=== PATIENT | male | born 1935 | race Caucasian/White ===

== ENCOUNTER 2019-02-01 11:43 | Inpatient (IN) | payer MEDICARE, OTHER, SELFPAY ==
[2019-02-01] VITALS (29 sets, daily range): BP systolic 71–144; BP diastolic 49–91; PULSE 65–107; RESP 10–28; TEMP 30.6–36.9; O2SAT 64–98; BMI 47.2
--- NOTE | 2019-02-01 | DI.ECHO.S_ITS ---
[facility] +---------+ : : [address] : [address] [address] : : : : [id number] : : : : Phone: [phone] Echocardiogram Report + + :Name: HA BARRETO Study Date: 02/02/2019 Height: 70 in : :[facility] Weight: 328 lb : : Gender: Male BSA: 2.6 m2 : :: 1935 Age: 83 yrs BP: 124/64 mmHg: :Reason For Study: CHF : : Performed By: [facility] Staff : :Referring: ELIZABETH NEWELL : + + Interpretation Summary The patient was in atrial fibrillation with controlled ventricular rate during the exam. The left ventricle is grossly normal size. Left ventricular ejection fraction is estimated to be 35 +/- 5%. There is moderate to severe global hypokinesis of the left ventricle. The right ventricle is moderate to severely dilated. Right ventricular systolic function is moderately reduced. The aortic valve is mildly calcified. There is mildly reduced leaflet mobility. The peak aortic velocity is 2.3 m/sec. The aortic valve mean gradient is 13 mmHg. There is mild aortic stenosis. There is moderate tricuspid regurgitation. The right ventricular systolic pressure is estimated to be at least 53 mmHg based on an estimated right atrial pressure of 15 mm Hg. There appears to be moderate to large pericardial effusion posterior to the left ventricle, right atrium and near the base of right ventricle. Near the apex and distal third of free RV wall, pericardial effusion is small. No obvious diastolic RV or right atrial collapse. No obvious jorge luis tamponade features. Procedure: A two-dimensional transthoracic echocardiogram with color flow and Doppler was performed. The study quality was technically difficult. A contrast injection of Definity was performed to improve assessment of LV function. There is no prior echocardiogram noted for this patient. The patient was in atrial fibrillation with controlled ventricular rate during the exam. Left Ventricle: There is mild concentric left ventricular hypertrophy. The left ventricle is grossly normal size. The left ventricular apex is not well visualized. Left ventricular ejection fraction is estimated to be 35 +/- 5%. There is moderate to severe global hypokinesis of the left ventricle. Diastolic function could not be accurately assessed due to atrial fibrillation. Right Ventricle: The right ventricle is moderate to severely dilated. Right ventricular systolic function is moderately reduced. Atria: The left atrium is severely dilated. The right atrium is severely dilated. The interatrial septum is intact with no evidence for an atrial septal defect. Mitral Valve: The mitral valve leaflets are mildly calcified. The mitral valve leaflets appear mildly thickened, but open well. There is mild mitral annular calcification. There is mild mitral regurgitation. Aortic Valve: The aortic valve is mildly calcified. There is mildly reduced leaflet mobility. There is mild aortic stenosis. The calculated aortic valve area is 1.5 cm2. The peak aortic velocity is 2.3 m/sec. The aortic valve mean gradient is 13 mmHg. No aortic regurgitation is present. Tricuspid Valve: The tricuspid valve is not well visualized, but is grossly normal. There is moderate tricuspid regurgitation. The right ventricular systolic pressure is estimated to be at least 53 mmHg based on an estimated right atrial pressure of 15 mm Hg. Pulmonic Valve: The pulmonic valve is not well visualized. There is trace pulmonic regurgitation. Great Vessels: The aortic root is normal size. The ascending aorta is at the upper limits of normal in size. The pulmonary artery is normal size. The IVC is dilated (diameter is greater than 2.1 cm) and it collapses less than 50% with a sniff. This suggests a high right atrial pressure of 15 mm Hg. Pericardium/ Pleura There appears to be moderate to large pericardial effusion posterior to the left ventricle and right atrium. Near the apex and distal third of free RV wall, pericardial effusion is small. No obvious diastolic RV or right atrial collapse. No obvious jorge luis tamponade features. There is no pleural effusion. MMode/2D Measurements & Calculations LVIDd: 5.5 cm LVOT diam: 2.1 cm LVIDs: 4.2 cm Ao root diam: 3.9 cm FS: 22.6 % Aortic Jxn: 2.8 cm EPSS: 1.0 cm asc Aorta Diam: 3.9 cm IVSd: 1.3 cm LVPWd: 1.4 cm LV fenton. diameter/BSA (cm/m^2): 2.1 LV sys. diameter/BSA (cm/m^2): 1.6 LA A2 area: 42.2 cm2 RA long axis: 7.4 cm LA A4 area: 49.2 cm2 RA area: 36.6 cm2 LA length (vol): 8.4 cm RA vol: 154.0 ml LA vol: 209.7 ml RA : 59.8 ml/m2 LA vol index: 81.4 ml/m2 IVC diam: 3.4 cm TAPSE: 1.4 cm Doppler Measurements & Calculations Ao V2 max: 231.0 cm/sec LVOT Max [place]: 89.0 cm/sec Ao V2 mean: 163.4 cm/sec LV V1 max P.2 mmHg Ao max P.0 mmHg LV V1 VTI: 18.3 cm Ao mean P.9 mmHg LYLE(I,D): 1.5 cm2 Ao V2 VTI: 45.5 cm LYLE(V,D): 1.4 cm2 sev ratio: 0.40 LYLE indexed to BSA (cm^2/m^2): 0.56 TR max [place]: 253.6 cm/sec SV(LVOT): 66.1 ml TR max P.9 mmHg Reading Physician:04:02 PM
--- NOTE | 2019-02-01 11:55 | ED_ITS ---
HPI - SOB/Dyspnea General Chief Complaint: Shortness of Breath/Dyspnea Stated Complaint: hx of a-fib/CHF/sob x 11days Time Seen by Provider: 02/01/19 11:50 Source: patient and old records reviewed Mode of arrival: Wheelchair Limitations: no limitations History of Present Illness HPI Narrative: Patient is an 83-year-old male with history of atrial fibrillation, CHF diabetes chronic kidney disease presenting with increasing shortness of breath sent over from a PCP. According to the they were seen at the PCP today because she has been having trouble keeping him awake. She says that while he is eating he stays awake but otherwise he was difficult to arouse and has been so over the last few days. The provider called me stating that he was satting 79% on room air in refused to come by ambulance he is not typically on oxygen he has had a cough but not productive no fevers he denies any chest pain currently as an O2 of 64% speaking in relatively full sentences. MD Complaint: shortness of breath Known history of: congestive heart failure Related Data Home oxygen amount: none Home Medications Medication Instructions Recorded Confirmed PreserVision AREDS 1 cap PO BID 02/01/19 02/01/19 Probiotic 1 cap PO QPM 02/01/19 02/01/19 allopurinol 300 mg PO DAILY 02/01/19 02/01/19 atorvastatin 10 mg PO QPM 02/01/19 02/01/19 cholecalciferol (vitamin D3) 2,000 unit PO DAILY 02/01/19 02/01/19 [Vitamin D3] dorzolamide 1 drp EYE-LEFT BID 02/01/19 02/01/19 eplerenone 12.5 - 25 mg PO DAILY 02/01/19 02/01/19 furosemide 80 mg PO DAILY 02/01/19 02/01/19 hydralazine 50 mg PO TID 02/01/19 02/01/19 isosorbide mononitrate 30 mg PO QAM 02/01/19 02/01/19 levothyroxine 200 mcg PO MOWEFRSA 02/01/19 02/01/19 levothyroxine 300 mcg PO SUTUTH 02/01/19 02/01/19 liraglutide [Victoza 2-Mingo] 6 mg SUBCUT DAILY 02/01/19 02/01/19 losartan 50 mg PO DAILY 02/01/19 02/01/19 magnesium oxide 400 mg PO DAILY 02/01/19 02/01/19 multivitamin 1 tab PO DAILY 02/01/19 02/01/19 warfarin See Rx Instructions .ROUTE .COMPLEX 02/01/19 02/01/19 Allergies Allergy/AdvReac Type Severity Reaction Status Date / Time clindamycin Allergy Severe Rash Verified 02/01/19 13:22 oxycodone Allergy Severe Rash Verified 02/01/19 13:22 Review of Systems Review of Systems ROS Unobtainable: All systems reviewed & are unremarkable except as noted in HPI and below Constitutional Constitutional: Denies chills, Denies fever(s), Denies lethargy and Denies weakness Eyes Eyes: Denies change in vision, Denies eye discharge, Denies irritation and Denies loss of vision ENT Ears, Nose, Mouth, and Throat: Denies change in voice, Denies neck pain and Denies sore throat Respiratory Respiratory: Reports as per HPI Gastrointestinal Gastrointestinal: Denies abdominal pain, Denies change in bowel habits, Denies diarrhea, Denies nausea and Denies vomiting Musculoskeletal Musculoskeletal: Denies neck pain Integumentary/Breasts Skin/Breast: Denies pruritus, Denies erythema, Denies rash and Denies wounds Neurologic Neurologic: Denies loss of vision and Denies weakness Patient History Medical History CHF (congestive heart failure) (Acute) Chronic kidney disease (Acute) COPD (chronic obstructive pulmonary disease) (Acute) Hypertension (Acute) Social History household members: spouse Smoking Status: Former smoker Exam Initial Vital Signs Initial Vital Signs: Vital Signs Temperature 97.8 F 02/01/19 11:52 Pulse Rate 107 H 02/01/19 11:52 Respiratory Rate 24 02/01/19 11:52 Blood Pressure 130/62 02/01/19 11:52 Pulse Oximetry 64 L 02/01/19 11:52 GENERAL: Overweight obese male HEENT: Head atraumatic,EOMI, pupils reactive, face symmetric CARDIOVASCULAR: Regular rate and rhythm without murmurs, rubs or gallops. RESPIRATORY: Decreased breath sounds bilaterally no tachypnea is able to speak ABDOMEN: Soft, nontender. Normoactive bowel sounds all 4 quadrants. No guarding or rebound. : No CVA tenderness EXTREMITIES: Normal range of motion, no clubbing or edema. Neurovascularly intact NEUROLOGICAL: Alert and oriented x4.Normal gait and speech. Cranial nerves II through XII grossly intact. SKIN: Warm, dry, no laceration, no petechiae, no rashes or lesions. Course Orders Ordered: ED Orders 02/01/19 12:00 B Type Natriuretic Peptide Stat Complete Blood Count AUTO DIFF Stat Comprehensive Metabolic Panel Stat Magnesium Stat Partial Thromboplastin Time Stat Procalcitonin Stat Prothrombin Time INR Stat Troponin & CK Cardiac Panel Stat 02/01/19 12:03 Consult to Respiratory Therapy Evaluate & Treat XR chest 1V Stat EKG-12 Lead Stat 02/01/19 12:20 Arterial Blood Gas Stat 02/01/19 12:40 Lactate (Lactic Acid) Stat 02/01/19 12:45 Blood Culture Stat Acetaminophen (Tylenol) 650 mg PO Q6HR PRN PRN Reason: As Needed for Fever/Mild Pain Allopurinol (Zyloprim) 300 mg PO DAILY [facility] Atorvastatin Calcium (Lipitor) 10 mg PO QPM [facility] Last Admin: 02/01/19 18:13 Dose: 10 mg Documented by: MITZI Bisacodyl (Dulcolax) 10 mg ND DAILY PRN PRN Reason: Constipation Dorzolamide HCl (Trusopt) 1 drops EYE-LEFT BID [facility] Hydralazine HCl (Apresoline) 50 mg PO TID [facility] Famotidine (Pepcid) 20 mg in 50 mls @ 200 mls/hr IV Q24H [facility] Last Admin: 02/01/19 18:12 Dose: 200 mls/hr Documented by: MITZI Isosorbide Mononitrate (Imdur) 30 mg PO DAILY [facility] Levothyroxine Sodium (Synthroid) 300 mcg PO SuTuTh@0600 [facility] Levothyroxine Sodium (Synthroid) 200 mcg PO MoWeFrSa@0600 [facility] Magnesium Oxide (Mag Ox) 400 mg PO DAILY [facility] Naloxone HCl (Narcan) 0.2 mg IV Q2MIN PRN PRN Reason: Opiate Reversal Discontinued Medications Furosemide (Lasix) 60 mg IV NOW ONE Stop: 02/01/19 12:04 Last Admin: 02/01/19 12:23 Dose: 60 mg Documented by: CIRILO Furosemide (Lasix) 40 mg IV NOW ONE Stop: 02/01/19 17:24 Last Admin: 02/01/19 18:13 Dose: 40 mg Documented by: MITZI Lidocaine HCl (Urojet) 5 ml TOP NOW ONE Stop: 02/01/19 13:56 Last Admin: 02/01/19 14:15 Dose: 5 ml Documented by: NIKOLAY Nitroglycerin (Nitrostat) 0.4 mg SL NOW ONE Stop: 02/01/19 12:04 Last Admin: 02/01/19 12:23 Dose: 0.4 mg Documented by: CIRILO Consultations Consultation #1: Dr. Malhotra, updated patient's symptoms and test results agrees with ICU admission and continuation of BiPAP. Time: 13:49 Vital Signs Vital signs: Vital Signs - 8 hr 02/01/19 11:52 02/01/19 11:53 02/01/19 12:05 Temperature 97.8 F Pulse Rate 107 H 105 H Respiratory Rate 24 26 H Blood Pressure 130/62 Blood Pressure [Right Arm] 119/91 H Pulse Oximetry 64 L 93 95 02/01/19 12:23 02/01/19 12:30 02/01/19 12:33 Temperature Pulse Rate 93 H 94 H 92 H Respiratory Rate 23 16 Blood Pressure 119/91 H Blood Pressure [Right Arm] 120/66 120/68 Pulse Oximetry 98 98 02/01/19 12:47 02/01/19 13:36 02/01/19 13:43 Temperature Pulse Rate 90 Respiratory Rate 16 22 Blood Pressure 71/49 L Blood Pressure [Right Arm] 95/59 L Pulse Oximetry 98 97 02/01/19 14:30 Temperature Pulse Rate 65 Respiratory Rate 18 Blood Pressure Blood Pressure [Right Arm] 117/82 Pulse Oximetry 96 MDM - SOB/Dyspnea Lab Data Attestation: I reviewed the patient's lab results. Result diagrams: 02/01/19 12:00 02/01/19 12:00 Labs: Lab Results 02/01/19 02/01/19 02/01/19 Range/Units 12:00 12:00 12:00 WBC 5.3 (4.5-11.0) X10^3/uL RBC 4.58 (4.5-5.9) X10^6/uL Hgb 12.0 L (13.5-17.5) g/dL Hct 39.0 L (41-53) % MCV 85.2 (80-100) fL MCH 26.2 (26-34) PG MCHC 30.8 (30-36) % RDW 18.9 H (11.6-14.8) % Plt Count 155 (150-400) X10^3/uL Neut % (Auto) 66.9 (50-75) % Lymph % (Auto) 15.2 L (25-40) % Leon % (Auto) 10.5 (3-14) % Eos % (Auto) 5.4 H (2-4) % Baso % (Auto) 2.0 (0-2) % Neut # (Auto) 3500 (1264-4856) /uL Lymph # (Auto) 800 L (0948-6118) /uL Leon # (Auto) 600 (0-900) /uL Eos # (Auto) 300 (0-450) /uL Baso # (Auto) 100 (0-100) /uL PT 36.7 H (10.1-12.7) SECONDS INR 3.1 H (0.9-1.3) APTT 50 H (26.4-36.2) SECONDS ABG pH (7.35-7.45) ABG pCO2 (35-45) mmHg ABG pO2 (80-100) mmHg ABG HCO3 (22-26) mmol/L ABG Total CO2 (21-31) mmol/L ABG O2 Saturation (95-100) % ABG Base Excess (-2-2) mmol/L FiO2 Sodium 144 (137-145) mmol/L Potassium 5.1 (3.4-5.1) mmol/L Chloride 108 H (98-107) mmol/L Carbon Dioxide 30 (22-32) mmol/L BUN 66 H (9-20) mg/dL Creatinine 2.70 H (0.66-1.25) mg/dL Estimated GFR 22.7 L (>60) mL/min BUN/Creatinine Ratio 24.4 H (6-22) Glucose 151 H (80-110) mg/dL Lactate (0.7-2.1) mmol/L Calcium 9.9 (8.4-10.2) mg/dL Magnesium 2.5 H (1.6-2.3) mg/dL Total Bilirubin 0.4 (0.2-1.3) mg/dL AST 28 (17-59) IU/L ALT 22 (<50) IU/L Alkaline Phosphatase 111 (38-126) U/L Total Creatine Kinase 51 L (55-170) U/L CK-MB (CK-2) TNP CK-MB (CK-2) Rel Index TNP Troponin I 0.062 H (0.01-0.034) ng/mL B-Natriuretic Peptide 337 H (<100) Total Protein 7.1 (6.3-8.2) g/dL Albumin 3.8 (3.5-5.0) g/dL Globulin 3.3 (1.7-4.1) g/dL Albumin/Globulin Ratio 1.2 (1.0-2.8) Procalcitonin (<0.5) ng/mL 02/01/19 02/01/19 02/01/19 Range/Units 12:00 12:20 12:40 WBC (4.5-11.0) X10^3/uL RBC (4.5-5.9) X10^6/uL Hgb (13.5-17.5) g/dL Hct (41-53) % MCV (80-100) fL MCH (26-34) PG MCHC (30-36) % RDW (11.6-14.8) % Plt Count (150-400) X10^3/uL Neut % (Auto) (50-75) % Lymph % (Auto) (25-40) % Leon % (Auto) (3-14) % Eos % (Auto) (2-4) % Baso % (Auto) (0-2) % Neut # (Auto) (2124-0438) /uL Lymph # (Auto) (1531-4620) /uL Leon # (Auto) (0-900) /uL Eos # (Auto) (0-450) /uL Baso # (Auto) (0-100) /uL PT (10.1-12.7) SECONDS INR (0.9-1.3) APTT (26.4-36.2) SECONDS ABG pH 7.25 L* (7.35-7.45) ABG pCO2 68.5 H* (35-45) mmHg ABG pO2 88 (80-100) mmHg ABG HCO3 30 H (22-26) mmol/L ABG Total CO2 32 H (21-31) mmol/L ABG O2 Saturation 95 (95-100) % ABG Base Excess 3.0 H (-2-2) mmol/L FiO2 40 Sodium (137-145) mmol/L Potassium (3.4-5.1) mmol/L Chloride (98-107) mmol/L Carbon Dioxide (22-32) mmol/L BUN (9-20) mg/dL Creatinine (0.66-1.25) mg/dL Estimated GFR (>60) mL/min BUN/Creatinine Ratio (6-22) Glucose (80-110) mg/dL Lactate 1.0 (0.7-2.1) mmol/L Calcium (8.4-10.2) mg/dL Magnesium (1.6-2.3) mg/dL Total Bilirubin (0.2-1.3) mg/dL AST (17-59) IU/L ALT (<50) IU/L Alkaline Phosphatase (38-126) U/L Total Creatine Kinase (55-170) U/L CK-MB (CK-2) CK-MB (CK-2) Rel Index Troponin I (0.01-0.034) ng/mL B-Natriuretic Peptide (<100) Total Protein (6.3-8.2) g/dL Albumin (3.5-5.0) g/dL Globulin (1.7-4.1) g/dL Albumin/Globulin Ratio (1.0-2.8) Procalcitonin < 0.05 (<0.5) ng/mL Urine Dip Bedside Urine Glucose Negative Bedside Urine Bilirubin - Negative Bedside Urine Ketone - Negative Urine Specific Newton 1.015 Bedside Urine Occult Blood - Negative Bedside Urine pH 6.0 Bedside Urine Protein ++ 100 Bedside Urine Urobilinogen - Negative Bedside Urine Nitrite - Negative Bedside Urine Leukocytes - Negative Esterase Imaging Data Chest x-ray: Radiologist's impression: PROCEDURE: XR CHEST 1V INDICATIONS: SHORT OF BREATH TECHNIQUE: One view of the chest was acquired. COMPARISON: None. FINDINGS: Surgical changes and devices: None. Lungs and pleura: Bibasilar patchy left greater than right opacities. No pleural effusions or pneumothorax. Mediastinum: Mediastinal contours appear normal. Heart size is markedly enlarged. Bones and chest wall: No suspicious bony lesions. Overlying soft tissues appear unremarkable. IMPRESSION: Marked cardiomegaly. Bibasilar patchy opacities in particular, left greater than right. In the absence prior studies, cannot exclude pneumonia. Also cannot exclude small left pleural effusion or pulmonary edema secondary to body habitus limitations. If there is persistent clinical diagnostic uncertainty, continued surveillance with short interval chest radiographs after treatment is recommended. Dictated by: Star Boss M.D. on 02/01/2019 at 12:34 ECG Data Attestation: I personally reviewed and interpreted this ECG as follows: Prior ECG tracings: not available for review Interpretation: Atrial fibrillation rate 89 QRS [address] changes no T- wave inversion MDM Narrative Medical decision making narrative: The patient tolerating BiPAP well. He was given nitroglycerin and Lasix to help with diuresis. This did decrease his blood pressure slightly and BiPAP settings were adjusted patient's blood pressure returned to normal shortly after. He actually is able to speak and despite extremely low oxygen level does not seem to be in severe respiratory d istress. I do not believe him to have a PE due to elevated and therapeutic INR of 3.1. He has no leukocytosis fever or elevated procalcitonin I do not believe infection at this time. All left side of chest x-ray does show opacities. His slightly more elevated creatinine of 2.7 baseline is 2.2 according to old records, and outpatient blood work from 01/21/2019 that the has. Patient is hemodynamically stable and will be transferred to the ICU for further care Critical Care Time Critical Care Time Critical Care Time: Yes Total Critical Care Time: 30 Attestation: The high probability of a clinically significant, sudden or life threatening deterioration of the [cardiovascular] system(s) required my full and direct attention, intervention and personal management. The aggregate critical care time was 30 minutes. This time is in addition to time spent performing reported procedures but includes the following: [x] Data Review and interpretation [x] Patient assessment and monitoring of vital signs [x] Documentation [x] Medication orders and management Discharge Plan Departure Patient Disposition: Admitted As Inpatient Clinical Impression: CHF (congestive heart failure) Qualifiers: Heart failure type: diastolic Heart failure chronicity: acute on chronic Qu alified Code(s): I50.33 - Acute on chronic diastolic (congestive) heart failure Discharge Date/Time: 02/01/19 15:35 Admit Date/Time: 02/01/19 15:04 Admit Provider: Jackelyn Malhotra
--- NOTE | 2019-02-01 12:03 | DI.RAD.S_ITS ---
PROCEDURE: XR CHEST 1V INDICATIONS: SHORT OF BREATH TECHNIQUE: One view of the chest was acquired. COMPARISON: None. FINDINGS: Surgical changes and devices: None. Lungs and pleura: Bibasilar patchy left greater than right opacities. No pleural effusions or pneumothorax. Mediastinum: Mediastinal contours appear normal. Heart size is markedly enlarged. Bones and chest wall: No suspicious bony lesions. Overlying soft tissues appear unremarkable. IMPRESSION: Marked cardiomegaly. Bibasilar patchy opacities in particular, left greater than right. In the absence prior studies, cannot exclude pneumonia. Also cannot exclude small left pleural effusion or pulmonary edema secondary to body habitus limitations. If there is persistent clinical diagnostic uncertainty, continued surveillance with short interval chest radiographs after treatment is recommended. Dictated by: Star Boss M.D. on 02/01/2019 at 12:34 Approved by: Star Boss M.D. on 02/01/2019 at 12:44
[2019-02-01 12:12] LABS: Add Manual Diff / Slide Review NO; Basophils Absolute Auto 100 /uL (0-100); Eosinophils Absolute Auto 300 /uL (0-450); Eosinophils Percent Auto 5.4 % (2-4); Lymphocytes Absolute Auto 800 /uL (1100-4500); Lymphocytes Percent Auto 15.2 % (25-40); Mean Corpuscular HGB Conc 30.8 % (30-36); Mean Corpuscular Hemoglobin 26.2 PG (26-34); Mean Corpuscular Volume 85.2 fL (80-100); Monocytes Absolute Auto 600 /uL (0-900); Monocytes Percent Auto 10.5 % (3-14); Neutrophils Absolute Auto 3500 /uL (1500-7000); Neutrophils Percent Auto 66.9 % (50-75); Platelet Count 155 X10^3/uL (150-400); Red Blood Cell Count 4.58 X10^6/uL (4.5-5.9); Red Cell Distribution Width 18.9 % (11.6-14.8); White Blood Cell Count 5.3 X10^3/uL (4.5-11.0)
[2019-02-01 12:19] LABS: INR 3.1 (0.9-1.3); Prothrombin Time 36.7 SECONDS (10.1-12.7)
[2019-02-01 12:21] LABS: PTT Partial Thromboplastin Tim 50 SECONDS (26.4-36.2)
[2019-02-01 12:23] LABS: Alanine Aminotransferase 22 IU/L (<50); Albumin 3.8 g/dL (3.5-5.0); Albumin Globulin Ratio 1.2 (1.0-2.8); Alkaline Phosphatase 111 U/L (38-126); Aspartate Aminotransferase 28 IU/L (17-59); BUN Creatinine Ratio 24.4 (6-22); Bilirubin Total 0.4 mg/dL (0.2-1.3); Blood Urea Nitrogen 66 mg/dL (9-20); Calcium 9.9 mg/dL (8.4-10.2); Carbon Dioxide 30 mmol/L (22-32); Chloride 108 mmol/L (98-107); Creatine Kinase 51 U/L (55-170); Estimated Glomerular Filt Rate 22.7 mL/min (>60); Globulin 3.3 g/dL (1.7-4.1); Glucose 151 mg/dL (80-110); HEMOLYSIS < 15 (0-50); Magnesium 2.5 mg/dL (1.6-2.3); Potassium 5.1 mmol/L (3.4-5.1); Sodium 144 mmol/L (137-145); Total Protein 7.1 g/dL (6.3-8.2)
[2019-02-01] MEDS: FUROSEMIDE 40 MG/4 ML VIAL 60 MG IV (12:23)
[2019-02-01] MEDS: NITROGLYCERIN 0.4 MG SL TAB SL (12:23)
[2019-02-01 12:35] LABS: Troponin I 0.062 ng/mL (0.01-0.034)
[2019-02-01 12:40] LABS: Procalcitonin < 0.05 ng/mL (<0.5)
[2019-02-01 12:44] LABS: B Type Natriuretic Peptide 337 (<100)
[2019-02-01 12:46] LABS: Fractionated Inspired Oxygen 40; HCO3 ABG 30 mmol/L (22-26); Oxygen Saturation ABG 95 % (95-100); PCO2 ABG 68.5 mmHg (35-45); PO2 ABG 88 mmHg (80-100); TCO2 ABG 32 mmol/L (21-31)
[2019-02-01 12:47] LABS: pH ABG 7.25 (7.35-7.45)
[2019-02-01] MEDS: LIDOCAINE 2% (UROJET) 5 ML GEL TOP (14:15)
[2019-02-01 16:11] LABS: Fractionated Inspired Oxygen 35; HCO3 ABG 29 mmol/L (22-26); Oxygen Saturation ABG 94 % (95-100); PCO2 ABG 62.8 mmHg (35-45); PO2 ABG 82 mmHg (80-100); TCO2 ABG 31 mmol/L (21-31); pH ABG 7.28 (7.35-7.45)
[2019-02-01] MEDS: FAMOTIDINE 20 MG/50 ML PIGGYBACK 200 MG IV (18:12)
[2019-02-01] MEDS: ATORVASTATIN 10 MG TABLET PO (18:13)
[2019-02-01] MEDS: FUROSEMIDE 40 MG/4 ML VIAL IV (18:13)
[2019-02-01 18:19] LABS: Creatine Kinase 45 U/L (55-170)
[2019-02-01 18:32] LABS: Troponin I 0.061 ng/mL (0.01-0.034)
[2019-02-01] MEDS: DORZOLAMIDE 2% OPHTH 10 ML 1 DROPS EYE-LEFT (21:42)
[2019-02-01] MEDS: HYDRALAZINE 25 MG TABLET 50 MG PO (21:42)
--- NOTE | 2019-02-01 22:01 | PC.NURSE ---
2200- Patient is tolerating Bipap well. Patient on 35% 16/8. Rest period patient is on 5liter cannula. Saturations above 92%. Hematuria noted in brennan catheter. Patient has a INR of 3.1 and is on coumadin. Patient has AFIB/CVR chronically. No respiratory distress while on the Cannula but the blood gas shows elevated CO2 so patient will wear the Bipap over night and a repeat ABG will be done in the am. Patient is currently stable.
[2019-02-01 22:11] LABS: BUN Creatinine Ratio 27.9 (6-22); Blood Urea Nitrogen 67 mg/dL (9-20); Calcium 9.7 mg/dL (8.4-10.2); Carbon Dioxide 33 mmol/L (22-32); Chloride 106 mmol/L (98-107); Glucose 117 mg/dL (80-110); HEMOLYSIS 28 (0-50); Sodium 141 mmol/L (137-145)
[2019-02-01 22:12] LABS: Potassium 5.4 mmol/L (3.4-5.1)
[2019-02-02] VITALS (19 sets, daily range): BP systolic 114–132; BP diastolic 56–84; PULSE 69–101; RESP 10–30; TEMP 30.7–36.9; O2SAT 91–97
--- NOTE | 2019-02-02 00:10 | P.HP_ITS ---
History of Present Illness History of Present Illness Date Patient Seen: 02/01/19 Time Patient Seen: 20:05 Chief complaint: hx of a-fib/CHF/sob x 11days Narrative: Mr. Yair Torres is an 83-year-old male with history significant for chronic atrial fibrillation on warfarin anticoagulation, diastolic congestive heart failure, COPD, hypertension, chronic kidney disease stage, hypothyroidism, GERD and bilious dermatosis who was sent to the ER by his primary care provider for shortness of breath. The patient presented to the office today complaining of shortness of breath which she states has been progressive for the last 7-10 days. The patient has had an associated cough reports been nonproductive and increasing exertional dyspnea. The patient patient does not use home O2 but it uses BiPAP nightly. He has had fatigue and drowsiness but no fevers or chills and denies chest pain. The patient was seen by his PCP at which time he was found to have saturations and 79 % on room air but no overt symptoms severe dyspnea. He was seen by his district manager in training, Dr. Guzman in the [facility], 1 week ago. The patient's states there have been recent changes in the patient's Lasix dosing. He does have an appointment in February for initial evaluation with Nephrology, Dr. Ricky Boss, at [facility]. Patient denies fevers or chills and has had no headaches or dizziness. Reports no nasal congestion or sore throat. Reports no chest pain and acknowledges occasional palpitations. He has shortness of breath this described above but denies wheezing. He denies abdominal pain, heartburn, nausea or vomiting. He denies changes in bowel or bladder habits. The patient endorses increasing difficulty ambulating. Upon arrival to the ER the patient had heart rate of 99, blood pressure 115/81, respiratory rate of 17 saturating 96%. Chest x-ray was obtained which finds marked cardiomegaly with patchy infiltrates. EKG is from obtain finding atrial fibrillation with a ventricular rate of 89, left bundle branch block without ST or T-wave changes or signs of ischemia. An ABG is obtained finding a pH of 7.2 8, pCO2 of 62.8, PO2 of 58, bicarb 29 with a base excess of +2. On laboratory analysis the patient has white count of 5.3 with no shift, hemoglobin of 12.0 and hematocrit of 39.0 with platelets of 155. He has a PT of 36.7, INR of 3.1 with a PTT of 50. On chemistries is sodium is 144 and his potassium 5.3 with a BUN of 66 and a creatinine of 2.7 and nonfasting glucose of 151. His LFTs are within normal limits. Procalcitonin is negative and lactic acid is 1.0. Total CK is low at 45 with a troponin that is elevated at 0.061 and a BNP of 337. The patient is placed on BiPAP in the emergency department the patient tolerates well and is given 60 mg of Lasix. The patient is admitted to the ICU on the medicine service for acute exacerbation of congestive heart failure. Patient History Medical History (Updated 02/02/19 @ 00:45 by ADRIAN Salgado) Bullous dermatoses (Acute) CHF (congestive heart failure) (Acute) Chronic atrial fibrillation (Acute) Chronic kidney disease (Acute) COPD (chronic obstructive pulmonary disease) (Acute) Gastroesophageal reflux (Acute) Hypertension (Acute) Hypothyroidism (Acute) Morbid obesity with BMI of 45.0-49.9, adult (Acute) Obstructive sleep apnea of adult (Acute) Surgical History (Updated 02/02/19 @ 00:45 by ADRIAN Salgado) History of skin graft (Acute) History of tonsillectomy (Acute) History of total bilateral knee replacement (Acute) History of uvulectomy (Acute) Family & Social History Family History (Updated 02/02/19 @ 00:47 by ADRIAN Salgado) Father No problems noted. Mother Cancer Brother Heart disease Daughter No significant medical problems Social History: household members spouse Prior Living Arrangements House Safety & Behavioral: Feels Safe in Current Yes Environment Been Physically Hurt or No Threatened By a Person Suicidal Ideation Description None Suicide Plan Description No Plan Tobacco & Substance use: Tobacco type cigarettes Smoking Status Former smoker alcohol intake frequency holiday/special occasion Substance Use Type does not use Comment: The patient lives in a single family home with his . He endorses a family history of his family passing away from complications of infection including gangrene, his mother having ovarian cancer, a brother who was an alcoholic and had cardiac disease. He has 2 children both of whom are healthy. He digitally states he has multiple family members with cardiovascular disease. Smoking: Patient quit smoking 30 years ago in 1979 endorses a 70 pack year history of smoking. Alcohol: Patient consumes alcohol occasionally reportedly averaging 1 time per month. Substance use: The patient denies recreation pharmaceuticals, herbal or cannabis products. Advanced directives: The patient does not have advanced directives, and direct conversation with the patient he states desire to be FULL CODE and states his wish to not have sustained life prolonging efforts. He designates his Sharita to be his surrogate decision maker. Meds Home Medications and Allergies Home Medications Medication Instructions Recorded Confirmed Type PreserVision AREDS 1 cap PO BID 02/01/19 02/01/19 History Probiotic 1 cap PO QPM 02/01/19 02/01/19 History allopurinol 300 mg PO DAILY 02/01/19 02/01/19 History atorvastatin 10 mg PO QPM 02/01/19 02/01/19 History cholecalciferol (vitamin D3) 2,000 unit PO DAILY 02/01/19 02/01/19 History [Vitamin D3] dorzolamide 1 drp EYE-LEFT BID 02/01/19 02/01/19 History eplerenone 12.5 - 25 mg PO DAILY 02/01/19 02/01/19 History furosemide 80 mg PO DAILY 02/01/19 02/01/19 History hydralazine 50 mg PO TID 02/01/19 02/01/19 History isosorbide mononitrate 30 mg PO QAM 02/01/19 02/01/19 History levothyroxine 200 mcg PO MOWEFRSA 02/01/19 02/01/19 History levothyroxine 300 mcg PO SUTUTH 02/01/19 02/01/19 History liraglutide [Victoza 2-[place]] 6 mg SUBCUT DAILY 02/01/19 02/01/19 History losartan 50 mg PO DAILY 02/01/19 02/01/19 History magnesium oxide 400 mg PO DAILY 02/01/19 02/01/19 History multivitamin 1 tab PO DAILY 02/01/19 02/01/19 History warfarin See Rx Instructions .ROUTE .COMPLEX 02/01/19 02/01/19 History Allergies Allergy/AdvReac Type Severity Reaction Status Date / Time clindamycin Allergy Severe Rash Verified 02/01/19 13:22 oxycodone Allergy Severe Rash Verified 02/01/19 13:22 Review of Systems Review of Systems ROS Unobtainable: All systems reviewed & are unremarkable except as noted in HPI and below Exam Vital Signs (past 8 hours): - 02/01/19 16:12 02/01/19 16:17 02/01/19 17:19 Temperature Pulse Rate 92 H 99 H Respiratory Rate 17 17 Blood Pressure 107/74 107/74 115/81 Pulse Oximetry 97 96 02/01/19 18:00 02/01/19 18:04 02/01/19 19:10 Temperature Pulse Rate 82 86 Respiratory Rate 21 17 Blood Pressure 144/76 H 122/63 126/76 Pulse Oximetry 94 94 02/01/19 19:42 02/01/19 20:10 02/01/19 21:00 Temperature Pulse Rate 80 Respiratory Rate 17 Blood Pressure 126/76 132/81 132/81 Pulse Oximetry 98 02/01/19 21:12 02/01/19 21:35 02/01/19 21:42 Temperature 97.8 F Pulse Rate 95 H 95 H Respiratory Rate 27 H 28 H Blood Pressure 119/63 119/53 L Pulse Oximetry 96 97 02/01/19 22:04 02/01/19 23:30 Temperature 98.5 F Pulse Rate 85 93 H Respiratory Rate 18 16 Blood Pressure 139/86 Pulse Oximetry 98 92 Fraction of Inspired Oxygen 35 Oxygen Delivery Method BiPAP Oxygen Flow Rate 5 Narrative Exam Narrative: GENERAL APPEARANCE: well developed, morbidly obese male, animated and speaking in full sentences on BiPAP. HEENT: Normocephalic, PERRLA, sclera is anicteric, conjunctiva clear, EOMs intact without nystagmus, no sinus tenderness to percussion, no rhinorrhea, mucous membranes appear moist and pink NECK/THYROID: Large short neck, supple and nontender, no JVD, no carotid bruit, no thyromegaly, trachea midline. LYMPH NODES: no cervical or supraclavicular lymphadenopathy. SKIN: [place], warm and dry, open bullious dermatitis lesions medial left lower leg, healed skin graft scar right lateral lower leg, bilateral stasis skin changes HEART: Irregularly irregular rhythm, S1-S2, no murmur appreciated, no rubs or gallops, brisk capillary refill, trace to 1+ bilateral lower extremity edema LUNGS: BiPAP mask in place,diminished breath sounds, fine bibasilar crackles right greater than left, no coarseness or wheezing, no cough present CHEST: Large barrel chest, symmetrical movement, no accessory muscle use, no pain on deep inspiration or to AP and lateral compression. ABDOMEN: Soft, round, tympanic to percussion, no abdominal tenderness, no guarding or peritoneal signs, no organomegaly-exam limited by body habitus, active bowel tones. EXTREMITIES: Well-healed surgical scars bilateral anterior knees, moves all extremities, strength is 4/5 and symmetrical, no deformities or joint effusions, skin changes as above. NEUROLOGIC: AAO x4, no focal neurologic deficits, cranial nerves II-XII grossly intact, sensation intact to light touch, hearing grossly normal to speech. PSYCH: cooperative, appropriate with stable behavior, linear thought processes. Objective Labs Result Diagrams: 02/01/19 12:00 02/01/19 21:55 Labs: Laboratory Results - last 24 hr 02/01/19 02/01/19 02/01/19 12:00 12:00 12:00 WBC 5.3 RBC 4.58 Hgb 12.0 L Hct 39.0 L MCV 85.2 MCH 26.2 MCHC 30.8 RDW 18.9 H Plt Count 155 Neut % (Auto) 66.9 Lymph % (Auto) 15.2 L [place] % (Auto) 10.5 Eos % (Auto) 5.4 H Baso % (Auto) 2.0 Neut # (Auto) 3500 Lymph # (Auto) 800 L [place] # (Auto) 600 Eos # (Auto) 300 Baso # (Auto) 100 PT 36.7 H INR 3.1 H APTT 50 H ABG pH ABG pCO2 ABG pO2 ABG HCO3 ABG Total CO2 ABG O2 Saturation ABG Base Excess FiO2 Sodium 144 Potassium 5.1 Chloride 108 H Carbon Dioxide 30 BUN 66 H Creatinine 2.70 H Estimated GFR 22.7 L BUN/Creatinine Ratio 24.4 H Glucose 151 H Lactate Calcium 9.9 Magnesium 2.5 H Total Bilirubin 0.4 AST 28 ALT 22 Alkaline Phosphatase 111 Total Creatine Kinase 51 L CK-MB (CK-2) TNP CK-MB (CK-2) Rel Index TNP Troponin I 0.062 H B-Natriuretic Peptide 337 H Total Protein 7.1 Albumin 3.8 Globulin 3.3 Albumin/Globulin Ratio 1.2 Procalcitonin 02/01/19 02/01/19 02/01/19 12:00 12:20 12:40 WBC RBC Hgb Hct MCV MCH MCHC RDW Plt Count Neut % (Auto) Lymph % (Auto) [place] % (Auto) Eos % (Auto) Baso % (Auto) Neut # (Auto) Lymph # (Auto) [place] # (Auto) Eos # (Auto) Baso # (Auto) PT INR APTT ABG pH 7.25 L* ABG pCO2 68.5 H* ABG pO2 88 ABG HCO3 30 H ABG Total CO2 32 H ABG O2 Saturation 95 ABG Base Excess 3.0 H FiO2 40 Sodium Potassium Chloride Carbon Dioxide BUN Creatinine Estimated GFR BUN/Creatinine Ratio Glucose Lactate 1.0 Calcium Magnesium Total Bilirubin AST ALT Alkaline Phosphatase Total Creatine Kinase CK-MB (CK-2) CK-MB (CK-2) Rel Index Troponin I B-Natriuretic Peptide Total Protein Albumin Globulin Albumin/Globulin Ratio Procalcitonin < 0.05 02/01/19 02/01/19 02/01/19 15:52 17:58 21:55 WBC RBC Hgb Hct MCV MCH MCHC RDW Plt Count Neut % (Auto) Lymph % (Auto) [place] % (Auto) Eos % (Auto) Baso % (Auto) Neut # (Auto) Lymph # (Auto) [place] # (Auto) Eos # (Auto) Baso # (Auto) PT INR APTT ABG pH 7.28 L* ABG pCO2 62.8 H* ABG pO2 82 ABG HCO3 29 H ABG Total CO2 31 ABG O2 Saturation 94 L ABG Base Excess 2.0 FiO2 35 Sodium 141 Potassium 5.4 H Chloride 106 Carbon Dioxide 33 H BUN 67 H Creatinine 2.40 H Estimated GFR 26.0 L BUN/Creatinine Ratio 27.9 H Glucose 117 H Lactate Calcium 9.7 Magnesium Total Bilirubin AST ALT Alkaline Phosphatase Total Creatine Kinase 45 L CK-MB (CK-2) TNP CK-MB (CK-2) Rel Index TNP Troponin I 0.061 H 0.060 H B-Natriuretic Peptide Total Protein Albumin Globulin Albumin/Globulin Ratio Procalcitonin Assessment & Plan Assessment & Plan narrative: This is an 83-year-old male patient who was sent in by his primary care provider for shortness of breath. The patient refused ambulance transported to the emergency department for private auto. 1. Acute on chronic respiratory failure. -acute exacerbation of congestive heart failure in the setting of COPD with a 70 pack year smoking history and obstructive sleep apnea. -patient acutely hypoxemic upon arrival the emergency department with a PF ratio of 245. -ABG with respiratory acidosis with a pH of 7.28, pCO2 62.8, PO2 of 82, bicarb 29 and a base excess of 2. -patient respiratory status is stabilized with BiPAP and treating underlying CHF exacerbation. 2. Acute exacerbation diastolic congestive heart failure, present on admission, active. -patient has been having Lasix dose adjusted by his district manager in training Dr. Gzuman. The patient does not report weight gain but has had progressive dyspnea for the last week. -BNP is 337, chest x-ray finds patchy infiltrates, no evidence of pneumonia, procalcitonin is negative, no leukocytosis, lactic acid is 1.0. -BiPAP initiated in the emergency department. -patient received nitroglycerin sublingual and 60 mg of Lasix in the ER followed by 40 mg of Lasix on admission to the ICU with improvement in symptoms. -patient uses BiPAP at night at home. Family will bring in patient's home machine for evaluation. -will continue the patient's home regimen of Lasix 80 mg daily and evaluate response. -[place] catheter in place for accurate I&Os during diuresis. 3. Acute kidney injury on Chronic kidney disease stage III, present on admission, active. -patient with BUN of 66 and creatinine of 2.7 on admission labs. EGFR is 22.7, calculated creatinine clearance is 45.2. -patient has an appointment but has not been seen with Dr. Ricky Boss at [facility]. -patient requires chronic diuretic therapy for management congestive failure. -minimize renal toxic agents, and renal dose medications as appropriate. 4. Chronic atrial fibrillation, present on admission, stable -12 lead EKG reveals atrial fibrillation with ventricular rate of 89 with left bundle branch block without ST or T-wave changes. -patient denies complaints of chest pain reports occasional palpitations. -potassium is 5.1 and magnesium is 2.5. Will hold magnesium oxide in the mornin g. -the patient is presently not on a rate-controlling medication. 5. Continued long-term anticoagulation on warfarin, chronic, present on admission, active. -patient takes warfarin 7.5 mg 6 times per week and 5 mg once per week. -warfarin dose is presently on hold for supratherapeutic INR at 3.1. -will re-evaluate INR in the morning. -dietary to consult. 6. Elevated troponin, unknown if acute or chronic, present on admission, active -the patient has had 3 serial troponins: 0.062, 0.061, 0.060. Stability the troponins within the error of the measuring instrument. -the patient has no active chest pain, no EKG changes suggestive of ischemia or infarct. - The elevation is likely related to chronic kidney disease. 7. Diabetes type 2, chronic, present on admission, active -patient with elevated nonfasting glucose on admission of 151. -patient takes liraglutide 6 mg sucutaneously daily. -fingerstick glucose a.c. and HS, will cover with correctional insulin low-dose range. -will follow glycemic trend. 8. Chronic obstructive pulmonary disease, present on admission, stable. -the patient endorses a 70 pack year history of smoking. He has no current inhalers and presents with no wheezing. -arterial blood gas obtained on admission demonstrates hypercapnia with a pCO2 of 62.8, will re-evaluate ABG in the morning for CO2 retention. -will target oxygen saturations 88-92%. 9. Essential hypertension, chronic, stable -blood pressure on admission is 115/81 dipping to 95 in the ER following nitroglycerin and Lasix therapy. Blood pressure 130s in the ICU. -will hold patient's eplerenone related to contraindication of creatinine greater than 2. -will continue patient's home regimen of hydralazine 50 mg t.i.d., isosorbide mononitrate 30 mg daily and losartan 50 mg daily. -will monitor blood pressures closely. 10. Bullous dermatitis, chronic, present on admission, active -patient receives wound care through [facility]. -patient previously with lesions on the right leg which have been successfully treated with betamethasone. -new lesions have developed on the left lower leg with wound care instructions stating to do dressing changes every other day with betamethasone and Saran wrap. -last dressing change was yesterday, wound care orders entered for tomorrow and every 48 hours. 11. Gastroesophageal reflux, chronic, stable -the patient is not on routine GI medication -ordered famotidine 20 mg daily. 12. Hypothyroidism, chronic, stable -will continue patient's home regimen of levothyroxine dosing with alternating dosing 200 and 300 mg. 13. Possible gout, presumed stable. -patient on thiazide diuretic therapy increasing risk of gout. -will continue patient's home medication of allopurinol 300 mg daily. -will continue losartan for hypertension with this additional uric acid lowering affect. 14. Morbid obesity, chronic -BMI is 47.2 -dietary consult requested VTE prophylaxis: Bilateral compression stockings, long-term anticoagulation on warfarin, supratherapeutic INR at 3.1. The patient is admitted to the hospital due to the severity of symptoms, risk for complications and adverse events. The patient is admitted as an inpatient to the ICU on BiPAP. Critical care time: 45 minutes is spent in direct and direction with the patient and the family. Time Spent With Patient Time with patient: Greater than 35 minutes
[2019-02-02 04:52] LABS: Add Manual Diff / Slide Review NO; Basophils Absolute Auto 100 /uL (0-100); Basophils Percent Auto 1.2 % (0-2); Eosinophils Absolute Auto 300 /uL (0-450); Hematocrit 36.5 % (41-53); Lymphocytes Absolute Auto 900 /uL (1100-4500); Lymphocytes Percent Auto 16.5 % (25-40); Mean Corpuscular HGB Conc 30.3 % (30-36); Mean Corpuscular Hemoglobin 25.9 PG (26-34); Mean Corpuscular Volume 85.7 fL (80-100); Monocytes Absolute Auto 700 /uL (0-900); Monocytes Percent Auto 12.2 % (3-14); Neutrophils Absolute Auto 3600 /uL (1500-7000); Neutrophils Percent Auto 65.1 % (50-75); Platelet Count 139 X10^3/uL (150-400); Red Blood Cell Count 4.26 X10^6/uL (4.5-5.9); Red Cell Distribution Width 18.1 % (11.6-14.8); White Blood Cell Count 5.6 X10^3/uL (4.5-11.0)
[2019-02-02 04:53] LABS: INR 3.6 (0.9-1.3); Prothrombin Time 42.4 SECONDS (10.1-12.7)
[2019-02-02 05:05] LABS: Hemoglobin A1C% w Est Avg Glu 5.8 % (4.0-6.0)
[2019-02-02 05:13] LABS: BUN Creatinine Ratio 25.4 (6-22); Blood Urea Nitrogen 66 mg/dL (9-20); Calcium 9.7 mg/dL (8.4-10.2); Carbon Dioxide 33 mmol/L (22-32); Chloride 106 mmol/L (98-107); Estimated Glomerular Filt Rate 23.7 mL/min (>60); Glucose 102 mg/dL (80-110); HEMOLYSIS < 15 (0-50); Sodium 142 mmol/L (137-145)
[2019-02-02 05:18] LABS: Potassium 5.4 mmol/L (3.4-5.1)
[2019-02-02 05:39] LABS: TSH w/ Reflex to FT4 3.68 uIU/mL (0.47-4.68)
[2019-02-02 05:55] LABS: Alanine Aminotransferase 19 IU/L (<50); Albumin 3.3 g/dL (3.5-5.0); Alkaline Phosphatase 90 U/L (38-126); Aspartate Aminotransferase 28 IU/L (17-59); Bilirubin Total 0.5 mg/dL (0.2-1.3); Bilirubin Unconjugated 0.3 mg/dL (0.0-1.1); Globulin 3.2 g/dL (1.7-4.1); HEMOLYSIS < 15 (0-50); Total Protein 6.5 g/dL (6.3-8.2)
[2019-02-02] MEDS: SODIUM POLYSTYRENE SULFON/SORB 15 GM/60 ML CUP PO (06:17)
--- NOTE | 2019-02-02 06:36 | PC.NURSE ---
Book Publisher Note-Patient slept with Bi-pap on throughout night, FIO2 35%, /, SpO2 90-95% most of the time, denies dyspnea. Placed on 2L NC in am after transferring to chair to keep SpO2 > 88%, was 87% on RA. Kayexcalate given as ordered for K+ 5.4. 950ml pink UOP from [facility].
[2019-02-02] MEDS: LEVOTHYROXINE 100 MCG TABLET 200 MCG PO (08:06)
[2019-02-02] MEDS: DORZOLAMIDE 2% OPHTH 10 ML 1 DROPS EYE-LEFT ×2 (08:07→21:02)
[2019-02-02] MEDS: ISOSORBIDE MONONITRATE ER 30 MG TABLET PO (08:08)
[2019-02-02] MEDS: FUROSEMIDE 40 MG TABLET 80 MG PO (08:10)
[2019-02-02] MEDS: HYDRALAZINE 25 MG TABLET 50 MG PO ×3 (08:10→21:02)
--- NOTE | 2019-02-02 09:57 | CM.DANOTE ---
DCP: Case received, EMR reviewed and met with patient. Introduced self and role. Was able to meet with patient and obtain baseline health and activity information. DCP assessment completed with information currently available. Patient is an 83 year old male who admitted yesterday afternoon to the care of the hospitalist team. PCP: Dr. Gallegos. Payer: confirmed: Medicare. Patient came to the hospital via family vehicle secondary to increased shortness of breath. He has history of a-fib, as well as CHF. Patient's current diagnosis is exacerbation of CHF. Patient is a full code. Patient is alert and oriented. He lives with his , Sharita. He uses a cane at home, and is driving. He does not have home oxygen, but does have a home BIPAP. He sees different specialists at [facility]. Patient does have some lower leg wounds that he is treating at home. P: DCP will continue to follow. Home health may be an option if he is home bound, for nursing. Will discuss with patient as well. Discussed with Dr. Malhotra, and she did sign a face to face just in case. Angella Oviedo RN/Sliver Cutter
--- NOTE | 2019-02-02 10:44 | DI.RAD.S_ITS ---
PROCEDURE: XR CHEST 1V INDICATIONS: CHF TECHNIQUE: One view of the chest was acquired. COMPARISON: [facility], CR, XR CHEST 1V, 02/01/2019, 12:10. FINDINGS: Surgical changes and devices: None. Lungs and pleura: Small bilateral pleural effusions are seen. Interstitial prominence is seen throughout. No pneumothorax can be seen. Mediastinum: Mediastinal contours appear normal. Heart size is moderately to prominently enlarged. Bones and chest wall: No suspicious bony lesions. Age-appropriate bony degenerative changes are seen. Overlying soft tissues appear unremarkable. IMPRESSION: Cardiomegaly, interstitial prominence, and pleural effusions, which are consistent with the given clinical history of CHF. No significant change from the prior. Dictated by: Misael Gongora M.D. on 02/02/2019 at 10:10 Approved by: Misael Gongora M.D. on 02/02/2019 at 10:11
--- NOTE | 2019-02-02 13:02 | PC.NURSE ---
Addendum entered by Mariel Calero R.N. 02/02/19 14:54: dressing change ( per md orders/ as they do it at home) left leg with 2 open areas weepy and right lower extremity with no open areas- applied saran wrap over rx cream and vaseline then covered with stockinette and his socks- to the right leg just vaseline applied and then stockinette and his sock- rinsed out previous compression stockinette Original Note: PT UP IN CHAIR SINCE THIS RNS ARRIVAL AT SHIFT CHANGE, HE IS COMFORTABLE ON 2L NC WITH SPO2 RANGING FROM 88-95% , VERY DIMINISHED BREATH SOUNDS BILATERALLY, DRESSINGS INTACT TO BILAT LOWER EXTREMITIES ( STATES DOES DRESSING CHANGES) PALPABLE PEDAL PULSES- AFIB CVR/RVR. USES HOME BIPAP AND WAS ON HOSPITAL BIPAP ALL NOC AND REPORTS HAVING A GOOD NIGHTS SLEEP
[2019-02-02] MEDS: SODIUM CHLORIDE 0.9% FLUSH 10 ML IV ×3 (14:32→21:03)
[2019-02-02] MEDS: FUROSEMIDE 40 MG/4 ML VIAL IV (14:33)
[2019-02-02] MEDS: BETAMETH DIP AUGM 0.05% OINT 15 GM 1 APPLIC TOP (14:36)
--- NOTE | 2019-02-02 15:43 | RT ---
Home BIPAP setup with water and 2 l bleed in. Patient instructed in removal of NC before placing his BIPAP mask. Also informed that if he has trouble he will go back on the hospital BIPAP for the night. RN present for instructions.
--- NOTE | 2019-02-02 15:51 | P.PN_ITS ---
Subjective Subjective Date Patient Seen: 02/02/19 Interval history: Yair Torres is an 83-year-old male with a past medical history significant for hypertension, hyperlipidemia, systolic congestive heart failure with EF 35- 40%, chronic atrial fibrillation on warfarin, chronic kidney disease stage III, hypothyroidism, and GERD who was sent to the ED by his PCP for progressive worse milagros shortness of breath over 2 weeks. The patient is resting in bedside chair comfortably. He denies shortness of breath but does endorse exertional dyspnea. He denies paroxysmal nocturnal dysp sha or orthopnea. He reports he feels much better than before he came in. He is on 2 L nasal cannula with oxygen saturations of 88-90%. He also endorses chronic constipation. He has no other complaints and denies headache, chest pain, abdominal pain, nausea, vomiting, fever, chills, dysuria, or diarrhea. He is voiding without difficulty. He has not had a bowel movement since admission and a bowel regimen has been implemented. He is up ambulating with assistance. Later in the afternoon I met with the patient's spouse and DPOA Sharita Walker, his daughter Luci and his son-in-law and [id number] and discussed the patient's care in full detail. Discussed systolic congestive hea rt failure and the main stays of treatment, as well as, chronic kidney disease in detail. All questions were answered. The patients has a significant amount of stress managing his care and will consult [facility] to assist with providing outpatient community resources and possible manager case management. Exam Vital Signs (past 8 hours): - 02/02/19 07:59 02/02/19 08:10 02/02/19 08:50 Temperature 97.9 F Pulse Rate 95 H 101 H 89 Respiratory Rate 25 H 18 Blood Pressure 132/84 132/84 Pulse Oximetry 93 91 02/02/19 11:00 02/02/19 11:45 02/02/19 14:32 Temperature Pulse Rate 85 91 H 89 Respiratory Rate 15 Blood Pressure 124/64 Pulse Oximetry 92 02/02/19 15:23 Temperature 98.4 F Pulse Rate 90 Respiratory Rate 16 Blood Pressure 114/58 L Pulse Oximetry 92 Fraction of Inspired Oxygen 35 Oxygen Delivery Method Nasal Cannula Oxygen Flow Rate 2 Narrative Exam Narrative: General: Elderly gentleman sitting in bedside chair and in no acute distress, well-developed, well-nourished, appropriately interactive HEENT: Normocephalic, atraumatic. External ears without defect. Pupils equal, round, and reactive to light. Anicteric sclerae, moist conjunctivae, and no lid lag. Oropharynx free of erythema and cobble stoning with moist mucosa. Neck: Supple with full range of motion. No jugular venous distension. No lymphadenopathy or thyromegaly. Cardiovascular: Irregularly irregular without murmurs, rubs, or gallops appreciated. Pulmonary: Diminished throughout with poor aeration and scattered fine crackles. No wheezes or rhonchi. Normal respiratory effort with no use of accessory muscles. Abdomen: Soft, obese, nontender, nondistended. No hepatosplenomegaly or masses appreciated. Extremities: No clubbing or cyanosis. Bilateral lower extremities with dressings in place C/D/I and no surrounding erythema and mild pitting edema to the pretibial area bilaterally. Skin: Normal temperature, turgor, and texture; no rash, ulcers, or subcutaneous nodules appreciated. Neurological: Cranial nerves grossly intact. Psychiatric: Normal mood and affect. Appears alert and oriented to person, place, and time. Mild cognitive impairment versus mild dementia with short-term memory recall deficit. Objective Labs Result Diagrams: 02/02/19 22:40 02/03/19 04:30 Labs: Laboratory Results - last 24 hr 02/01/19 02/01/19 02/01/19 15:52 17:58 21:55 WBC RBC Hgb Hct MCV MCH MCHC RDW Plt Count Neut % (Auto) Lymph % (Auto) Slope % (Auto) Eos % (Auto) Baso % (Auto) Neut # (Auto) Lymph # (Auto) Slope # (Auto) Eos # (Auto) Baso # (Auto) PT INR ABG pH 7.28 L* ABG pCO2 62.8 H* ABG pO2 82 ABG HCO3 29 H ABG Total CO2 31 ABG O2 Saturation 94 L ABG Base Excess 2.0 FiO2 35 Sodium 141 Potassium 5.4 H Chloride 106 Carbon Dioxide 33 H BUN 67 H Creatinine 2.40 H Estimated GFR 26.0 L BUN/Creatinine Ratio 27.9 H Glucose 117 H Hemoglobin A1c Calcium 9.7 Total Bilirubin Conjugated Bilirubin Unconjugated Bilirubin AST ALT Alkaline Phosphatase Total Creatine Kinase 45 L CK-MB (CK-2) TNP CK-MB (CK-2) Rel Index TNP Troponin I 0.061 H 0.060 H Total Protein Albumin Globulin Albumin/Globulin Ratio TSH 02/02/19 02/02/19 02/02/19 04:35 04:35 04:35 WBC 5.6 RBC 4.26 L Hgb 11.0 L Hct 36.5 L MCV 85.7 MCH 25.9 L MCHC 30.3 RDW 18.1 H Plt Count 139 L Neut % (Auto) 65.1 Lymph % (Auto) 16.5 L Slope % (Auto) 12.2 Eos % (Auto) 5.0 H Baso % (Auto) 1.2 Neut # (Auto) 3600 Lymph # (Auto) 900 L Slope # (Auto) 700 Eos # (Auto) 300 Baso # (Auto) 100 PT 42.4 H D INR 3.6 H ABG pH ABG pCO2 ABG pO2 ABG HCO3 ABG Total CO2 ABG O2 Saturation ABG Base Excess FiO2 Sodium Potassium Chloride Carbon Dioxide BUN Creatinine Estimated GFR BUN/Creatinine Ratio Glucose Hemoglobin A1c 5.8 Calcium Total Bilirubin Conjugated Bilirubin Unconjugated Bilirubin AST ALT Alkaline Phosphatase Total Creatine Kinase CK-MB (CK-2) CK-MB (CK-2) Rel Index Troponin I Total Protein Albumin Globulin Albumin/Globulin Ratio TSH 02/02/19 02/02/19 02/02/19 04:35 04:35 04:35 WBC RBC Hgb Hct MCV MCH MCHC RDW Plt Count Neut % (Auto) Lymph % (Auto) Slope % (Auto) Eos % (Auto) Baso % (Auto) Neut # (Auto) Lymph # (Auto) Slope # (Auto) Eos # (Auto) Baso # (Auto) PT INR ABG pH ABG pCO2 ABG pO2 ABG HCO3 ABG Total CO2 ABG O2 Saturation ABG Base Excess FiO2 Sodium 142 Potassium 5.4 H Chloride 106 Carbon Dioxide 33 H BUN 66 H Creatinine 2.60 H Estimated GFR 23.7 L BUN/Creatinine Ratio 25.4 H Glucose 102 Hemoglobin A1c Calcium 9.7 Total Bilirubin 0.5 Conjugated Bilirubin 0.0 Unconjugated Bilirubin 0.3 AST 28 ALT 19 Alkaline Phosphatase 90 Total Creatine Kinase CK-MB (CK-2) CK-MB (CK-2) Rel Index Troponin I 0.060 H Total Protein 6.5 Albumin 3.3 L Globulin 3.2 Albumin/Globulin Ratio 1.0 TSH 3.68 Assessment & Plan Assessment & Plan narrative: Yair Torres is an 83-year-old male with a past medical history significant for hypertension, hyperlipidemia, systolic congestive heart failure with EF 35- 40%, chronic atrial fibrillation on warfarin, chronic kidney disease stage III, hypothyroidism, GERD, and 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 1. Acute on chronic hypoxemic and hypercarbic respiratory failure, present on admission. Active. -Secondary to exacerbation of congestive heart failure in the setting of COPD with a 70 pack year smoking history and obstructive sleep apnea. -Patient acutely hypoxemic upon arrival the emergency department with a PF ratio of 245 and hypercarbic with PCO2 62.8. -ABG demonstrated respiratory acidosis with metabolic compensation: pH of 7.28, pCO2 62.8, PO2 of 82, bicarb 29 and a base excess of 2. -Consulted respiratory therapy for evaluation and treatment. Continue BiPAP at all times while napping or sleeping. Continue supplemental oxygen as necessary to keep oxygen saturations 88-92%. Currently on 2 L nasal cannula. -Continue to diurese as below. 2. Acute systolic congestive heart failure exacerbation, present on admission. Active. -Patient recently had Lasix dose adjusted by his channel manager Dr. Louis. The patient does not report weight gain but has had progressive dyspnea for the last week. -BNP is 337. -Chest x-ray interpreted by me demonstrated significant pulmonary edema with left pleural effusion finds. No evidence of pneumonia, procalcitonin is negativ e, no leukocytosis, and lactic acid is normal at 1.0. -Previous echocardiogram in 11/2017 demonstrated moderate global hypokinesis with LV function moderately reduced with EF 35-40%. Ordered repeat e chocardiogram, pending. -Received sublingual nitroglycerin 0.4 mg x1 furosemide 60 mg IV x1 in ED. Patient received home furosemide 80 mg PO this morning and will give an additional furosemide 40 mg IV x 1 and continue furosemide 40 mg IV daily. -Continue strict I&O (Coates catheter placed in ED for accurate I&O's) and daily weights. Net -1.5 L. -Continue fluid restriction of 1.5 L and low-sodium diet. 3. Acute kidney injury on chronic kidney disease stage III, present on admission. Active. -Initial creatinine of 2.7 with eGFR is 22.7 and calculated creatinine clearance corrected for weight is 33. -Patient currently does not have a electric distribution engineer but has an upcoming appointment with Nephrology, Dr. Ricky Boss at [facility]. -Avoid nephrotoxic agents other than diuretic therapy for management congestive failure. -Continue to renally dose medications as appropriate. -Continue to monitor renal function closely. 4. Chronic atrial fibrillation on warfarin, present on admission, stable -EKG demonstrated atrial fibrillation with ventricular rate of 89. -Patient denies chest pain but endorses occasional palpitations. -Potassium is 5.1 and magnesium is 2.5. Held magnesium oxide. -Not currently on a rate-controlling medication. -Patient takes warfarin 7.5 mg 6 times per week and 5 mg once per week and is presently on hold for supratherapeutic INR previously 6 now 3.6. Continue to monitor INR closely and restart 5. Elevated troponin of unclear significance, present on admission. Stable. -Patient denies chest pain. -EKG demonstrated atrial fibrillation without ischemic changes. -Serial troponins mildly elevated and stable at 0.062, 0.061, 0.060 in setting of chronic kidney disease. No need to further trend. 6. Diabetes mellitus type 2, non-insulin using, chronic, present on admission, active -Hemoglobin A1c 5.8% indicative of tight glycemic control and prediabetic range. -Continue liraglutide 6 mg SQ daily and monitor closely for hypoglycemia as low risk with this medication but incidence still 2-3% with monotherapy. -Continue ACHS glucose and will cover with low-dose correctional scale insulin.. 7. Chronic obstructive pulmonary disease, present on admission. Stable. -Does not represent COPD exacerbation. -Patient endorses a 70 pack year history of smoking. He has no current inhalers and presents with no wheezing. -Patient presented with hypoxemic and hypercarbic respiratory failure as above and ABG demonstrated respiratory acidosis with metabolic compensation: pH of 7.28, pCO2 62.8, PO2 of 82, bicarb 29 and a base excess of 2. -Continue to treat hypoxemic and hypercarbic respiratory failure as above. 8. Hypertension, chronic, present on admission. Stable. -Continue home hydralazine 50 mg 3 times daily, isosorbide mononitrate 30 mg daily and losartan 50 mg daily. Held patient's eplerenone related to contraindication of creatinine greater than 2. 9. Bullous pemphigoid, chronic, present on admission. Stable. -Patient receives wound care through [facility]. Patient previously with lesions on the right leg which have been successfully treated with betamethasone. Recent lesions have developed on the left lower leg with wound care instructions stating to do dressing changes every other day with betamethasone and Saran wrap and will continue. 10. Gastroesophageal reflux, chronic, present on admission. Stable. -Started and continue ranitidine 150 mg daily for GI prophylaxis. 11. Hypothyroidism, chronic, present on admission. Stable. -TSH normal at 3.68. -Continue home levothyroxine with alternating dose of 200 and 300 mcg daily. 12. Gout, chronic, present on admission. Stable. -Held allopurinol due to JAYE as above and will restart at lower renal dose when appropriate. -Continue losartan 50 mg daily for hypertension with additional uric acid lowering affect. 13. Morbid obesity, chronic -BMI is 47.2 -Consulted dietitian but not obtainable as they are not available on weekends. Code status: Full code VTE prophylaxis: Bilateral compression stockings, long-term anticoagulation on warfarin, supratherapeutic INR at 3.6 Disposition: Patient likely to discharge home with home health in the next 1-2 days depending on improvement in congestive heart failure and acute on chronic respiratory failure.
[2019-02-02] MEDS: INSULIN ASPART 100 UNIT/ML INSULN PEN SUBCUT (16:49)
[2019-02-02] MEDS: ATORVASTATIN 10 MG TABLET PO (17:27)
--- NOTE | 2019-02-02 18:02 | RT ---
[facility] contacted for someone to come in to change the settings on his BIPAP for him. Per contact with [facility], patient's home machine is set at an ASV with a top pressure of 16 and a range of 7-10 for his lower pressure. Per [facility] representive, their therapist will contact [facility] to let them know when they will be here to deal with his machine. Dr. Malhotra informed of information. Patient may need to go on home O2 as well. Patient also has only a nasal mask for his machine, so may need to be switched to a full face mask to get full benefit of his set pressures. Patient trial on his machine and desaturating with large leak through his mouth. Returned to hospital BIPAP at 16/8 for night time use.
[2019-02-02] MEDS: ACETAMINOPHEN 325 MG TABLET 650 MG PO (19:15)
[2019-02-02] MEDS: DOCUSATE 100 MG CAPSULE PO (21:01)
[2019-02-02 21:41] LABS: HCO3 ABG 30 mmol/L (22-26); Oxygen Saturation ABG 96 % (95-100); PCO2 ABG 63.8 mmHg (35-45); PO2 ABG 94 mmHg (80-100); TCO2 ABG 32 mmol/L (21-31); pH ABG 7.29 (7.35-7.45)
[2019-02-02 21:42] LABS: Fractionated Inspired Oxygen 35
--- NOTE | 2019-02-02 21:50 | PC.NURSE ---
Noted pt. to be confused around 2129, pt. was only able to tell me his name, denies pain or shortness of air, lungs sounds diminished throughout with left base fine crackles. Pt. on hospital Bipap at Fi02-35%, IPAP-16, EPAP-8, RR-16 since mask on pt's. home Bipap did not fit well. Hospitalist called and informed him of this findings and order to check pt. BG and ABG. BG result of 147, and ABG with pH-7.286, pCO2-63.8, PO2-94, BE-4, HCO3-30.4. Results given to hospitalist and order received for RT to increase ventilation which RT did from RR 16 to 20. Will continue to monitor pt. status and update hospitalist.
[2019-02-02 22:51] LABS: Add Manual Diff / Slide Review NO; Basophils Absolute Auto 0 /uL (0-100); Basophils Percent Auto 0.6 % (0-2); Eosinophils Absolute Auto 200 /uL (0-450); Eosinophils Percent Auto 3.6 % (2-4); Hematocrit 35.1 % (41-53); Hemoglobin 10.8 g/dL (13.5-17.5); Lymphocytes Absolute Auto 700 /uL (1100-4500); Lymphocytes Percent Auto 10.5 % (25-40); Mean Corpuscular HGB Conc 30.8 % (30-36); Mean Corpuscular Volume 84.5 fL (80-100); Monocytes Absolute Auto 800 /uL (0-900); Monocytes Percent Auto 11.7 % (3-14); Neutrophils Absolute Auto 4800 /uL (1500-7000); Neutrophils Percent Auto 73.6 % (50-75); Platelet Count 136 X10^3/uL (150-400); Red Blood Cell Count 4.16 X10^6/uL (4.5-5.9); Red Cell Distribution Width 18.2 % (11.6-14.8); White Blood Cell Count 6.5 X10^3/uL (4.5-11.0)
[2019-02-02 22:59] LABS: BUN Creatinine Ratio 25.6 (6-22); Blood Urea Nitrogen 69 mg/dL (9-20); Calcium 9.5 mg/dL (8.4-10.2); Carbon Dioxide 33 mmol/L (22-32); Chloride 105 mmol/L (98-107); Estimated Glomerular Filt Rate 22.7 mL/min (>60); Glucose 133 mg/dL (80-110); HEMOLYSIS < 15 (0-50); Potassium 4.6 mmol/L (3.4-5.1); Sodium 141 mmol/L (137-145)
[2019-02-03] VITALS (11 sets, daily range): BP systolic 122–147; BP diastolic 58–85; PULSE 80–112; RESP 16–24; TEMP 31–37.7; O2SAT 90–96
--- NOTE | 2019-02-03 04:08 | PC.NURSE ---
Addendum entered by Ara Núñez R.N. 02/03/19 05:41: Patient dozing, agreed to put hospital Bi-pap back on. Original Note: [place] Drill Operator Notes-Patient restless and mildly agitated upon beginning of shift, not tolerating hospital Bi-pap, requesting it to get it off Agreeable to remove his dentures and place his own Bi-pap on, oriented to person and place, but not always situation. Rested with his mask on and 2L O2 bleed-in, but started to desat <88%. At 0030 placed hospital Bi-pap back on at 35%, 26/10, RR 20, decreased FIO2 to 25% at 0230 for SpO2 >96%, then patient woke at 0300, restless and forgetful, pulling at gown and mask, reoriented to place and time of day, but refused to wear any mask. SpO2 88-94% on 1L NC while sleeping after 0315. HR 80s-90s A-fib, RR 16-24, breath sounds diminished with fine crackles LLL. Denies dyspnea.
[2019-02-03 05:01] LABS: BUN Creatinine Ratio 26.7 (6-22); Blood Urea Nitrogen 72 mg/dL (9-20); Calcium 9.9 mg/dL (8.4-10.2); Carbon Dioxide 32 mmol/L (22-32); Chloride 104 mmol/L (98-107); Estimated Glomerular Filt Rate 22.7 mL/min (>60); Glucose 108 mg/dL (80-110); HEMOLYSIS 33 (0-50); Magnesium 2.4 mg/dL (1.6-2.3); Sodium 141 mmol/L (137-145)
[2019-02-03 08:38] LABS: INR 3.6 (0.9-1.3); Prothrombin Time 42.7 SECONDS (10.1-12.7)
[2019-02-03 08:39] LABS: Add Manual Diff / Slide Review NO; Basophils Absolute Auto 100 /uL (0-100); Basophils Percent Auto 1.2 % (0-2); Eosinophils Absolute Auto 300 /uL (0-450); Eosinophils Percent Auto 3.7 % (2-4); Hematocrit 36.8 % (41-53); Hemoglobin 11.3 g/dL (13.5-17.5); Lymphocytes Absolute Auto 1000 /uL (1100-4500); Lymphocytes Percent Auto 14.3 % (25-40); Mean Corpuscular HGB Conc 30.7 % (30-36); Mean Corpuscular Hemoglobin 26.2 PG (26-34); Mean Corpuscular Volume 85.4 fL (80-100); Monocytes Absolute Auto 800 /uL (0-900); Monocytes Percent Auto 11.8 % (3-14); Neutrophils Absolute Auto 4700 /uL (1500-7000); Platelet Count 133 X10^3/uL (150-400); Red Blood Cell Count 4.31 X10^6/uL (4.5-5.9); Red Cell Distribution Width 18.3 % (11.6-14.8); White Blood Cell Count 6.8 X10^3/uL (4.5-11.0)
--- NOTE | 2019-02-03 08:46 | CM.DPC ---
Addendum entered by Angella Oviedo R.N. 02/03/19 10:36: Met briefly with , Sharita. She mentioned that she is expecting her sister to be here as well. W Original Note: DCP Cont: Called , Sharita, left a message on her home phone, and was able to reach her on her cell. She is on her way seeing patient. She has been anxious, according to hospitalist and nursing staff regarding patient's disease process, overwhelmed with appointments. Let her know that this pillowcase turner can meet with her today to reach out and offer any resources that she and may need. P: DCP will meet with patient and today to discuss resources. Angella Oviedo RN/Server Engineer
[2019-02-03] MEDS: LEVOTHYROXINE 100 MCG TABLET 300 MCG PO (08:53)
[2019-02-03] MEDS: FUROSEMIDE 40 MG/4 ML VIAL IV (08:53)
[2019-02-03] MEDS: ISOSORBIDE MONONITRATE ER 30 MG TABLET PO (08:53)
[2019-02-03] MEDS: DOCUSATE 100 MG CAPSULE PO ×2 (08:53→20:51)
[2019-02-03] MEDS: HYDRALAZINE 25 MG TABLET 50 MG PO ×3 (08:53→20:51)
[2019-02-03] MEDS: DORZOLAMIDE 2% OPHTH 10 ML 1 DROPS EYE-LEFT ×2 (08:53→20:51)
[2019-02-03] MEDS: BETAMETH DIP AUGM 0.05% OINT 15 GM 1 APPLIC TOP (13:43)
[2019-02-03] MEDS: NYSTATIN POWDER 15GM 1 APPLIC TOP (13:44)
[2019-02-03] MEDS: MAGNESIUM OXIDE 400 MG TABLET PO (13:44)
[2019-02-03] MEDS: SODIUM CHLORIDE 0.9% FLUSH 10 ML IV ×2 (13:44→20:52)
[2019-02-03] MEDS: LOSARTAN 50 MG TABLET 25 MG PO (13:45)
--- NOTE | 2019-02-03 14:00 | PC.NURSE ---
PT DENIES PAIN BUT DOES NEED OCCASIONAL REMINDERS DUE TO FORGETFULNESS, LUNGS DIM BUT MOSTLY CLEAR OCC. FEW FINE CRACKLES IN LEFT BASE- REQUIRING 02 @ 2L DURING REST ( WHEN NOT ON BIPAP) AND 3L 02 DURING ACTIVITY. BILAT LOWER EXTREMITY DRESSING CHANGED - TAKING PILLS WELL AND CONTINUES WITH FLUID RESTRICTION. AFIB CVR/RVR AND SALINE LOCK X 2- MANY FAMILY MEMBERS AT BEDSIDE
--- NOTE | 2019-02-03 14:48 | CM.DPC ---
DCP Cont: Met with patient's , Sharita, and two sisters. Kathia, who resides in [place], and Ellie, who resides in [place], who will soon be moving to [place]. Sister, ellie, is willing to help as needed. Both are supportive. Discussed some options and resources for patient. Did discuss penitentiary, for patient would be eligible with Medicare by tomorrow. Patient has not yet worked with physical therapy. Sharita mentioned that it may be better for him to go back to [facility] in [place], for he was there before, and his doctors are in that area. Daughter, Ellie, in agreement. Other daughter, Kathia, stated that home health may be a good option as well. Explained what home health could do, such as nursing, and P.T, as well as bath aide. is unsure, for she stated that they may be spending more of their time in [place]. Part of 's concern is that his bed is upstairs, a flight of stairs, at their [facility] home, and if he can make it up the stairs. Discussed moving bed downstairs, which daughter Ellie stated she could help with that. Went over his oxygen as well, since he will be needing a concentrator, through [employer]. is concerned about having another concentrator when they go to their [place] [employer]. Encouraged to discuss with RAngelitaT. Encouraged to make other choices besides [facility], for it is uncertain if they will have any availabilities. Let her know that this case management social worker would attempt to reach them, but unsure if they will be available in admissions today, Monday. Encouraged to make a couple more choices of penitentiary facilities, or to choose a home health agency for now, while in [place]. Gave her the Medicare choice list, as well as [facility]. Looked up [facility]. Their number is: [phone]. Left a message with Rona in admissions, asking if they have any beds available. Can follow up tomorrow as well. P: DCP will follow closely. Patient could be ready for discharge tomorrow. has not mentioned [facility] to patient, for it is uncertain if they can accept. Other option is home health, but has not made any further decisions on penitentiary facilities or home health. Let know that this case manage left Rona a message, in admissions at [facility]. is familiar with Rona. Angella Oviedo RN/Life Cycle Assessment Analyst
--- NOTE | 2019-02-03 15:55 | P.PN_ITS ---
Subjective Subjective Date Patient Seen: 02/03/19 Interval history: Yair Torres is an 83-year-old male with a past medical history significant for hypertension, hyperlipidemia, systolic congestive heart failure with EF 35- 40%, chronic atrial fibrillation on warfarin, chronic kidney disease stage III, hypothyroidism, and GERD who was sent to the ED by his PCP for progressive worse milagros shortness of breath over 2 weeks. Interval history: Patient awoke and a middle of the night to urinate and was confused and did not know where he was at. Patient likely has mild dementia and is at risk of hospital induced delirium. The patient is resting in bedside chair comfortably. He is on room air and intermittently desaturates and will place him back on 2 L to maintain saturatio ns 88-92%. He denies shortness of breath but does endorse exertional dyspnea that is improved. He denies paroxysmal nocturnal dyspnea or orthopnea. He endorses feeling thirsty and requests more fluids. Discussed main stays of heart failure with the patient including fluid restriction, low-sodium diet, monitoring weight changes and symptom management. He has no other complaints and denies headache, chest pain, abdominal pain, nausea, vomiting, fever, chills, dysuria, or diarrhea. He is voiding and eliminating without difficulty. He is up ambulating with assistance. Exam Vital Signs (past 8 hours): - 02/03/19 08:00 02/03/19 08:23 02/03/19 13:30 Temperature 98.1 F 99.9 F H Pulse Rate 94 H 87 112 H Respiratory Rate 16 18 Blood Pressure 147/85 H 125/58 L Pulse Oximetry 93 94 96 02/03/19 14:05 Temperature Pulse Rate 93 H Respiratory Rate Blood Pressure 125/58 L Pulse Oximetry Fraction of Inspired Oxygen 35 Oxygen Delivery Method Nasal Cannula Oxygen Flow Rate 2 Narrative Exam Narrative: General: Elderly gentleman sitting in bedside chair and in no acute distress, well-developed, well-nourished, appropriately interactive HEENT: Normocephalic, atraumatic. External ears without defect. Pupils equal, round, and reactive to light. Anicteric sclerae, moist conjunctivae, and no lid lag. Oropharynx free of erythema and cobble stoning with moist mucosa. Neck: Supple with full range of motion. No jugular venous distension. No lymphadenopathy or thyromegaly. Cardiovascular: Irregularly irregular without murmurs, rubs, or gallops appreciated. Pulmonary: Diminished throughout but improved aeration, clear to auscultation bilaterally with fine bibasilar crackles. No wheezes or rhonchi. Normal respiratory effort with no use of accessory muscles. Abdomen: Soft, obese, nontender, nondistended. No hepatosplenomegaly or masses appreciated. Extremities: No clubbing or cyanosis. Bilateral lower extremities with dressings in place C/D/I and no surrounding erythema and mild pitting edema to the pretibial area bilaterally. Skin: Normal temperature, turgor, and texture; no rash, ulcers, or subcutaneous nodules appreciated. Neurological: Cranial nerves grossly intact. Psychiatric: Normal mood and affect. Appears alert and oriented to person, place, and time. Mild cognitive impairment versus mild dementia with short-term memory recall deficit. Objective Labs Result Diagrams: 02/03/19 04:30 02/03/19 04:30 Labs: Laboratory Results - last 24 hr 02/02/19 02/02/19 02/02/19 21:29 22:40 22:40 WBC 6.5 RBC 4.16 L Hgb 10.8 L Hct 35.1 L MCV 84.5 MCH 26.0 MCHC 30.8 RDW 18.2 H Plt Count 136 L Neut % (Auto) 73.6 Lymph % (Auto) 10.5 L Mcclain % (Auto) 11.7 Eos % (Auto) 3.6 Baso % (Auto) 0.6 Neut # (Auto) 4800 Lymph # (Auto) 700 L Mcclain # (Auto) 800 Eos # (Auto) 200 Baso # (Auto) 0 PT INR ABG pH 7.29 L ABG pCO2 63.8 H* ABG pO2 94 ABG HCO3 30 H ABG Total CO2 32 H ABG O2 Saturation 96 ABG Base Excess 4.0 H FiO2 35 Sodium 141 Potassium 4.6 Chloride 105 Carbon Dioxide 33 H BUN 69 H Creatinine 2.70 H Estimated GFR 22.7 L BUN/Creatinine Ratio 25.6 H Glucose 133 H Calcium 9.5 Magnesium 02/02/19 02/03/19 02/03/19 22:40 04:30 04:30 WBC 6.8 RBC 4.31 L Hgb 11.3 L Hct 36.8 L MCV 85.4 MCH 26.2 MCHC 30.7 RDW 18.3 H Plt Count 133 L Neut % (Auto) 69.0 Lymph % (Auto) 14.3 L Mcclain % (Auto) 11.8 Eos % (Auto) 3.7 Baso % (Auto) 1.2 Neut # (Auto) 4700 Lymph # (Auto) 1000 L Mcclain # (Auto) 800 Eos # (Auto) 300 Baso # (Auto) 100 PT 42.7 H INR 3.6 H ABG pH ABG pCO2 ABG pO2 ABG HCO3 ABG Total CO2 ABG O2 Saturation ABG Base Excess FiO2 Sodium 141 Potassium 5.0 Chloride 104 Carbon Dioxide 32 BUN 72 H Creatinine 2.70 H Estimated GFR 22.7 L BUN/Creatinine Ratio 26.7 H Glucose 108 Calcium 9.9 Magnesium 2.4 H Assessment & Plan Assessment & Plan narrative: Yair Torres is an 83-year-old male with a past medical history significant for hypertension, hyperlipidemia, systolic congestive heart failure with EF 35- 40%, chronic atrial fibrillation on warfarin, chronic kidney disease stage III, hypothyroidism, GERD, and 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 1. Acute on chronic hypoxemic and hypercarbic respiratory failure, present on admission. Acute portion resolved. -Secondary to exacerbation of congestive heart failure in the setting of COPD with a 70 pack year smoking history and obstructive sleep apnea. Patient was previously on home oxygen which was discontinued for unclear reasons. -Patient was acutely hypoxemic upon arrival the emergency department with a PF ratio of 245 and hypercarbic with PCO2 62.8. -ABG demonstrated respiratory acidosis with metabolic compensation: pH of 7.28, pCO2 62.8, PO2 of 82, bicarb 29 and a base excess of 2. -Consulted respiratory therapy for evaluation and treatment. Continue BiPAP at all times while napping or sleeping. Continue supplemental oxygen as necessary to keep oxygen saturations 88-92%. Currently on 2 L nasal cannula. Patient was hypoxemic at rest with oxygen saturation of 87% on room air. On 2 L nasal cannula his oxygen saturations improved to 92%. On 2 L nasal cannula with exertion his oxygen saturations were 88% and improved to 90% on 3 L. Ordering home oxygen, 2 L at rest and 3 L with exertion to treat his COPD and chronic hypoxemic respiratory failure. -Continue to diurese as below. 2. Acute systolic congestive heart failure exacerbation, present on admission. Resolving. -Patient recently had Lasix dose adjusted by his customer engagement specialist Dr. Louis. The patient does not report weight gain but has had progressive dyspnea for the last week. -BNP is 337. -Chest x-ray interpreted by me demonstrated significant pulmonary edema with left pleural effusion finds. No evidence of pneumonia, procalcitonin is negative, no leukocytosis, and lactic acid is normal at 1.0. -Previous echocardiogram in 11/2017 demonstrated moderate global hypokinesis with LV function moderately reduced with EF 35-40%. Repeat echocardiogram unchanged. -Received sublingual nitroglycerin 0.4 mg x1 furosemide 60 mg IV x1 in ED. Patient received home furosemide 80 mg PO this morning and will give an additional furosemide 40 mg IV x 1 and continue furosemide 40 mg IV daily. -Continue strict I&O (Coates catheter placed in ED for accurate I&O's) and daily weights. Net -1.5 L. -Continue fluid restriction of 1.5 L and low-sodium diet. 3. Acute kidney injury versus worsening chronic kidney disease stage III, present on admission. Active. -Baseline creatinineappears to be 2.2 per outpatient records. Initial creatinine of 2.7 with eGFR is 22.7 and calculated creatinine clearance corrected for weight is 33. Trended down to 2.4 and back up to 2.7 today possibly representing new baseline. -Patient currently does not have a transition mgr rn but has an upcoming appointment with Nephrology, Dr. Ricky Boss at [facility]. -Avoid nephrotoxic agents other than diuretic therapy for management congestive failure. -Continue to renally dose medications as appropriate. -Continue to monitor renal function closely. 4. Chronic atrial fibrillation on warfarin with supratherapeutic INR, present on admission. Stable. -EKG demonstrated atrial fibrillation with ventricular rate of 89. -Patient denies chest pain but endorses occasional palpitations. -Potassium is 5.0 and magnesium is 2.4. Discontinued magnesium oxide. -Not currently on a rate-controlling medication. -Patient takes warfarin 7.5 mg 6 times per week and 5 mg once per week and is presently on hold for supratherapeutic INR previously 6 now 3.6 and unchanged. Unclear why patient is supratherapeutic other than probable underlying liver disease with mildly low platelets, albumin and elevated INR. Continue to monitor INR closely and restart if falls below 2.5. Continue outpatient monitoring and follow-up at [facility]. 5. Elevated troponin of unclear significance, present on admission. Stable. -Patient denies chest pain. -EKG demonstrated atrial fibrillation without ischemic changes. -Serial troponins mildly elevated and stable at 0.062, 0.061, 0.060 in setting of chronic kidney disease. No need to further trend. 6. Diabetes mellitus type 2, non-insulin using, chronic, present on admission, active -Hemoglobin A1c 5.8% indicative of tight glycemic control and prediabetic range. -Continue liraglutide 6 mg SQ daily and monitor closely for hypoglycemia as low risk with this medication but incidence still 2-3% with monotherapy. -Continue [facility] blood glucose checks and will cover with low-dose correctional scale insulin. 7. Chronic obstructive pulmonary disease, present on admission. Stable. -Does not represent COPD exacerbation. -Patient endorses a 70 pack year history of smoking. He has no current inhalers and presents with no wheezing. -Patient presented with hypoxemic and hypercarbic respiratory failure as above and ABG demonstrated respiratory acidosis with metabolic compensation: pH of 7.28, pCO2 62.8, PO2 of 82, bicarb 29 and a base excess of 2. -Continue to treat hypoxemic and hypercarbic respiratory failure as above. 8. Hypertension, chronic, present on admission. Stable. -Continue home hydralazine 50 mg 3 times daily, isosorbide mononitrate 30 mg daily and losartan half normal dose at 25 mg daily. Discontinued eplerenone as this is contraindicated with creatinine greater than 2. 9. Bullous pemphigoid, chronic, present on admission. Stable. -Patient receives wound care through [facility]. Patient previously with lesions on the right leg which have been successfully treated with betamethasone. Recent lesions have developed on the left lower leg with wound care instructions stating to do dressing changes every other day with betamethasone and Saran wrap and will continue. 10. Gastroesophageal reflux, chronic, present on admission. Stable. -Started and continue ranitidine 150 mg daily for GI prophylaxis. 11. Hypothyroidism, chronic, present on admission. Stable. -TSH normal at 3.68. -Continue home levothyroxine with alternating dose of 200 and 300 mcg daily. 12. Gout, chronic, present on admission. Stable. -Held allopurinol due to JAYE as above and will restart at lower renal dose 100 mg daily when appropriate. -Continue losartan at half normal dose 25 mg daily due to JAYE for hypertension with additional uric acid lowering affect. 13. Morbid obesity, chronic -BMI is 47.2 -Consulted dietitian but not obtainable as they are not available on weekends. Code status: Full code VTE prophylaxis: Bilateral compression stockings, long-term anticoagulation on warfarin, supratherapeutic INR at 3.6 Disposition: Patient likely to discharge home with home health versus custodial facility for rehabilitation tomorrow.
--- NOTE | 2019-02-03 16:41 | PT.IIE ---
Current Diagnoses Bullous disorder, unspecified (02/01/19) Surgical History (Last Updated 02/02/19 @ 00:45 by ADRIAN Salgado) History of skin graft (Acute) History of tonsillectomy (Acute) History of total bilateral knee replacement (Acute) History of uvulectomy (Acute) Medical History (Last Updated 02/02/19 @ 00:45 by ADRIAN Salgado) Bullous dermatoses (Acute) CHF (congestive heart failure) (Acute) Chronic atrial fibrillation (Acute) Chronic kidney disease (Acute) COPD (chronic obstructive pulmonary disease) (Acute) Gastroesophageal reflux (Acute) Hypertension (Acute) Hypothyroidism (Acute) Morbid obesity with BMI of 45.0-49.9, adult (Acute) Obstructive sleep apnea of adult (Acute) Physical Therapy Inpatient Evaluation/Re-Eval M1 PT/OT-IP Prior Functional Status Start: 02/03/19 17:02 Freq: NEEDED Status: Active Protocol: Document 02/03/19 16:41 DLM (Rec: 02/03/19 17:16 DLM [id number]) Medical Review Prior Functional Status Medical History Reviewed Yes Diet/Fluid Consistency Regular Communication WFL Mobility and Gait Independent gait with st cane, community distances Activities of Daily Living and IADL's Independent with basic ADL's, helps with wound issues on LE's Prior Functional Level (Other details) no oxygen at home in recent past, went to SNF rehab in past for LE wounds Social History Household Members spouse Living Arrangements House Number of Floors (Floors) Two Floors Home Equipment Straight Cane Additional Social History Comment They plan to go stay at their Co-op in [place] which is one level M2 PT-IP Current Condition Start: 02/03/19 17:02 Freq: NEEDED Status: Active Protocol: Document 02/03/19 16:41 DLM (Rec: 02/03/19 17:16 DLM [id number]) Physical Therapy Current Condition Current Condition Evaluation Date 02/03/19 Treatment Diagnosis impaired gait and decreased activity tolerance Onset Date 02/01/19 Precautions Other Precautions oxygen needs: 2 LPM at rest and 3 LPM with activity per respiratory M3 PT-IP Subjective Start: 02/03/19 17:02 Freq: NEEDED Status: Active Protocol: Document 02/03/19 16:41 DLM (Rec: 02/03/19 17:16 DLM [id number]) Subjective Physical Therapy Visit Type Type Initial Evaluation Visit Start Time 15:40 Visit Stop Time 16:41 Total Visit Minutes 61 Number of OIL LABORATORY ANALYST Visits 0 Physical Therapy Visit Comments Patient Comments He does not want to go to SNF rehab, has had oxygen at home in the past but many years ago . Patient Goals get better, go home Therapy Pain Assessment Pain When Pain Assessed During Mobility Pain Present Pain Present Denied Pain M4 PT-IP Mobility and Gait Start: 02/03/19 17:02 Freq: NEEDED Status: Active Protocol: Document 02/03/19 16:41 DLM (Rec: 02/03/19 17:16 [facility] [id number]) PT-Transfer Assessment Sit to and From Stand Sit to and from Stand Standby Assistance Equipment Transfer Assistive Device Gait Belt,Front Wheeled Walker Transfers Transfer Destination Chair Transfer Technique Stand Step Pivot Transfer Ability Level of Assist Standby Assistance Comments Mobility Comments pt up in recliner and wants to stay up, present this visit Gait Assessment Gait Gait Assistance Required: Standby Assistance Distance (Feet) 180 Assistive Devices Assistive Device Gait Belt,Front Wheeled Walker Factors Limiting Gait Function Factors Limiting Gait Function Respiratory Distress Comments Gait Comments mild shortness of breath using 3 LPM oxygen PT-Balance Assessment Sitting Balance and Reactions Static Sitting Balance Ability Good Dynamic Sitting Balance Ability Good Standing Balance and Reactions Static Standing Balance Ability Good Dynamic Standing Balance Ability Fair Device Used FWW M5 PT-IP Objective Assessments Start: 02/03/19 17:02 Freq: NEEDED Status: Active Protocol: Document 02/03/19 16:41 DL (Rec: 02/03/19 17:16 [facility] [id number]) Orientation Orientation/Cognition Level of Alertness Alert Orientation Name,Age,Birthday,Month,Date, Year,Day of Week,Place, Situation Language Function Ability No Deficits Noted Safety Awareness Understands Safety Issues Memory Description No Deficits Noted Gross Range of Motion Upper Extremity ROM Assessment Within Functional Limits Lower Extremity ROM Assessment Within Functional Limits Strength Upper Extremity Strength Assessment Within Functional Limits Lower Extremity Strength Assessment Within Functional Limits Coordination Assessment Gross Coordination Gross Coordination WNL Sensation Assessment Comments Sensation Comments he reports no numbness in his feet today but that he typically does not numbness in bilateral feet Muscle Tone Muscle Tone WNL Yes M6 PT-IP Treatment Start: 02/03/19 17:02 Freq: NEEDED Status: Active Protocol: Document 02/03/19 16:41 DLM (Rec: 02/03/19 17:16 DLM [id number]) Physical Therapy Treatment Exercises Exercises Ankle Pumps Education Education Provided Safety Other Treatments Other Treatment Performed discussed use of home O2 monitor with his to better manage his breathing issues M7 PT-IP Assessment and Plan Start: 02/03/19 17:02 Freq: NEEDED Status: Active Protocol: Document 02/03/19 16:41 DLM (Rec: 02/03/19 17:16 DLM [id number]) PT Summary Assessment and Plan Potential Rehabilitation Potential Good Status of Condition at Evaluation Evolving Summary Impairments Transfers,Gait,Activity Tolerance Assessment Summary Yair is alert and willing to work with physical therapy. His seems anxious about managing his new respiratory issues at home. Pt tolerated gait in the asencio well with fWW using 3 LPM of oxygen with mild shortness of breath. His reports they will be going to [place] to stay in a one level home that they have there. There house on [address] is 2 story with the bedroom on the second floor. I anticipate he will be safe to discharge home with his when he is medically stable. He could benefit from getting a 4WW for discharge. A 4WW will better manage his oxygen and respiratory issued than a fWW. Goals Bed Mobility Goal Independent Transfer Goal Independent,Front Wheeled Walker Gait Goal Standby Assistance,Front Wheel Walker,Four Wheel Walker Gait Distance 150 feet Days to Meet Goals 3 Frequency of Treatment Frequency Of Treatment Twice a Day Treatment Plan Physical Therapy Treatment Plan Bed Mobility Training,Transfer Training,Gait Training, Therapeutic Exercise,Discharge Planning Recommendations To Nursing Amount of Assist Needed 1 Person Assist Discharge Recommendations PT Discharge Recommendations Home with Assistance,Home Health Equipment Needed for Home Before 4WW for home use Discharge
[2019-02-03] MEDS: ATORVASTATIN 10 MG TABLET PO (16:49)
--- NOTE | 2019-02-03 23:23 | DI.CT.S_ITS ---
PROCEDURE: CT CHEST WO CON INDICATIONS: SOB, CHF, COPD, Pericardial Effusion TECHNIQUE: Noncontrast 5 mm thick sections acquired from the pulmonary apices to the posterior costophrenic angles. 1 mm lung window, 5 mm thick coronal and sagittal and 7 mm axial MIP reformats were then acquired. For radiation dose reduction, the following was used: automated exposure control, adjustment of mA and/or kV according to patient size. COMPARISON: None. FINDINGS: Image quality: Excellent. Lungs and pleura: Mild to moderate right pleural effusion, mild left pleural effusion, mild compressive bibasilar atelectasis. Central and peripheral airways are patent and normal in caliber. Mediastinum: Moderate pericardial effusion. Mild cardiomegaly. Coronary atherosclerotic calcifications.. No mediastinal adenopathy by size criteria. Thoracic aorta and central pulmonary arteries are normal in size. Esophagus is normal in caliber. No hiatal hernia. Bones and chest wall: No suspicious bony lesions. No vertebral body compression fractures. No axillary or supraclavicular adenopathy by size criteria. Thyroid gland is unremarkable. Abdomen: Visualized upper abdominal solid organs and bowel loops appear normal in the absence of contrast. IMPRESSION: 1. Moderate pericardial effusion. 2. Mild cardiomegaly. 3. Coronary artery disease. 4. Moderate right pleural effusion, mild left pleural effusion, bibasilar atelectasis. Comment: Final report is concordant with preliminary interpretation provided by [facility]. Dictated by: Ethan Love M.D. on 02/04/2019 at 7:52 Approved by: Ethan Love M.D. on 02/04/2019 at 7:55
[2019-02-04] VITALS (18 sets, daily range): BP systolic 109–141; BP diastolic 54–89; PULSE 79–110; RESP 16–27; TEMP 30.1–36.9; O2SAT 91–98
--- NOTE | 2019-02-04 01:31 | P.EN_ITS ---
Event Note Date Patient Seen: 02/03/19 Time Patient Seen: 22:45 Event Note: Mr. Yair Torres is an 83-year-old male with history significant for chronic atrial fibrillation on warfarin anticoagulation, diastolic congestive heart failure, COPD, hypertension, chronic kidney disease stage, hypothyroidism, GERD and bilious dermatosis who was admitted for shortness of breath and hypoxemia secondary to exacerbation of heart failure. This evening the patient was evaluated by [employer] motor vehicle field representative for home BiPAP machine and mask fitting. The patient was transitioned to the new machine for trial. Within 3 hours the patient was becoming increasingly hypoxemic requiring increase in oxygen demand to maintain adequate saturations. The patient is somewhat lethargic but arousable and interactive. The patient's breath sounds free mean markedly diminished with bibasilar crackles. Additionally noted on echocardiogram obtained on 02/02/2019 the patient has an EF of 35 % +/-5% with moderate to severe global hypokinesis of the left ventricle. Additionally it is noted that the patient has a mild large pericardial effusion posterior to the left ventricle right atrium and near the base of the right ventricle. It is also not on the echo that there is no obvious diastolic RV or right atrial collapse and no obvious jorge luis tamponade features. Due to the patient's change in status a stat noncontrast CT exam is obtained due to chronic renal failure with a creatinine of 2.7. Reading of the exam finds moderate pericardial effusion, bilateral small pleural effusions with lower lobe atelectasis. The patient is transitioned back to hospital BiPAP equipment on his previous s ettings. The patient required liberated is tolerating the BiPAP well with improved oxygenation prompting downward titration of oxygen. Ruling out organic pathology leading to the change patient's status the new equipment from [employer] is unable to meet the patient's needs.
[2019-02-04 05:02] LABS: INR 2.2 (0.9-1.3); Prothrombin Time 25.7 SECONDS (10.1-12.7)
[2019-02-04 05:06] LABS: Blood Urea Nitrogen 75 mg/dL (9-20); Calcium 10.2 mg/dL (8.4-10.2); Carbon Dioxide 32 mmol/L (22-32); Chloride 106 mmol/L (98-107); Estimated Glomerular Filt Rate 24.8 mL/min (>60); Glucose 117 mg/dL (80-110); HEMOLYSIS 25 (0-50); Magnesium 2.5 mg/dL (1.6-2.3); Potassium 4.9 mmol/L (3.4-5.1); Sodium 143 mmol/L (137-145)
[2019-02-04 05:20] LABS: Fractionated Inspired Oxygen 0.28; HCO3 ABG 30 mmol/L (22-26); Oxygen Saturation ABG 94 % (95-100); PCO2 ABG 63.3 mmHg (35-45); PO2 ABG 79 mmHg (80-100); TCO2 ABG 32 mmol/L (21-31); pH ABG 7.29 (7.35-7.45)
[2019-02-04] MEDS: LEVOTHYROXINE 100 MCG TABLET 200 MCG PO (06:19)
[2019-02-04] MEDS: ISOSORBIDE MONONITRATE ER 30 MG TABLET PO (10:19)
[2019-02-04] MEDS: DORZOLAMIDE 2% OPHTH 10 ML 1 DROPS EYE-LEFT ×2 (10:19→22:10)
[2019-02-04] MEDS: NYSTATIN POWDER 15GM 1 APPLIC TOP (10:19)
[2019-02-04] MEDS: SODIUM CHLORIDE 0.9% FLUSH 10 ML IV ×2 (10:20→22:09)
[2019-02-04] MEDS: MAGNESIUM OXIDE 400 MG TABLET PO (10:20)
[2019-02-04] MEDS: HYDRALAZINE 25 MG TABLET 50 MG PO ×3 (10:21→23:32)
[2019-02-04] MEDS: DOCUSATE 100 MG CAPSULE PO ×2 (10:22→22:09)
[2019-02-04] MEDS: LOSARTAN 50 MG TABLET 25 MG PO (10:22)
--- NOTE | 2019-02-04 10:52 | CM.DPC ---
Addendum entered by LA Camargo 02/04/19 15:42: ADD: SW met bedside with pt, spouse Sharita, and pt's sister maria del rosario and updated on referral to [facility] and recent msg with admissions inquiring if they can accept the pt. Spouse and sister maria del rosario preference is still SNF at d/c prior to home and SW discussed that pt is medically doing well and SNF will need to determine if they feel pt is Skillable through Medicare and still waiting to hear from admissions to determine if they can accept. SW encouraged family to feel free to call Rona at [facility] after SW shift if needed as they have spoken with her previously about placement. SW discussed plan of home with [facility] and [facility] for oxygen/trilogy needs if SNF cannot accept and they are agreeable with that plan if pt cannot go to [facility]. Pt seems agreeable with SNF prior to home if he is accepted. NOÉ left another msg with admissions at [facility] at 1540 requesting call back this evening with msg to determine if they can accept tomorrow. BF Addendum entered by LA Camargo 02/04/19 13:55: ADD: NOÉ called [facility] and confirmed they cover all of [place] and faxed new referral along with F2F and MD orders to review to fax [phone] to review. NOÉ called [facility] office [phone] and confirmed that they are scheduled to set up Trilogy with pt tomorrow and SW requested morning set up so pt can d/c to [place] and unfortunately earliest [facility] can arrive is 1200. NOÉ confirmed that they cannot provide the [place] 4WW since pt just has straight Medicare. SW updated PT on [facility] not being able to provide the 4WW and they will follow up to determine if the hospital has a walker to distribute and/or provide spouse with the DME list. NOÉ placed 4WW order for PT. NOÉ updated RN and RN kindly placing [facility] info into pt's d/c folder since spouse and family are not currently bedside. Plan: SW to follow for confirmation from [facility] that they have accepted pt for likely d/c tomorrow and trilogy set up prior to pt discharge to [place] apt via spouse POV tomorrow afternoon. [facility] SNF still reviewing as a back up plan if needed but pt likely not skillable at this time. LA Camargo Original Note: DCP Home Planning: Per MD, pt seems to be stabilizing but [facility] attempted his home bipap with re-fitting his face mask last night and pt did not tolerate well with de-sat. RT working with Alverto and MD today to get Trilogy for likely d/c tomorrow 02/05/19. Per PT, pt participated last night in therapy and ambulated well and recommending safe d/c home with spouse assist and HH and recommending walker to help with longer ambulation and new oxygen needs. PT hopeful that walker can be delivered through [facility] as well since he is receiving oxygen through [facility] as well. NOÉ called [facility] SNF in [place] that was spouse preference at d/ and left msg to inquire about possible acceptance if still needed at d/ and BLOSSOM Muñoz faxed clinicals to review to [facility]. SW called pt's spouse Sharita who states she is working on packing up their belongings at their [place] address towards ongoing plan of staying at their [place] address at d/ and plans to be bedside later today. Spouse confirms she was bedside last night when PT worked with pt and she is now agreeable with pt's preference of home to [place] apartment and HH and no HH preference and spouse agreeable with SW determining what HH agency covers their area of [place] and sending referral. [place] address is [address] [place], [id number]. SW met bedside with pt and explained role and update on spouse packing up their belongings and pt very agreeable with d/c plan and calling spouse to encourage her to stay home this morning and try to relax a little. SW updated RN and practical nurse clinical coordinator. Plan: SW to follow closely for determining HH agency that covers [place] apt and making referral and confirm RT and MD able to set up Trilogy through [facility] prior to likely d/c tomorrow Monday. SW to attempt to call [facility] today to determine if walker can be set up for delivery at same time as oxygen. LA Camargo
--- NOTE | 2019-02-04 11:35 | PM.PN.1 ---
Subjective Subjective Date Patient Seen: 02/04/19 Time Patient Seen: 11:35 Interval history: Yair Torres is an 83-year-old male with a past medical history significant for hypertension, hyperlipidemia, systolic congestive heart failure with EF 35-40%, chronic atrial fibrillation on warfarin, chronic kidney disease stage III, hypothyroidism, and GERD who was sent to the ED by his PCP for progressive worsening shortness of breath over 2 weeks. Interval History: Patient overnight had trial of home BiPAP machine which failed as reported in the event note written by ADRIAN Chavez. In short patient has seemingly improved or stable pleural effusions and pericardial effusions which are likely secondary to volume overload and workup for other causes of respiratory failure were unrevealing. Order has been placed for Trilogy today, however the setup will likely occur tomorrow. Currently pending rehab evaluation at this time as well. The patient is resting in bedside chair comfortably. He is on room air and intermittently desaturates and will place him back on 2 L to maintain saturations 88-92%. He denies shortness of breath but does endorse exertional dyspnea that is improved. He denies paroxysmal nocturnal dyspnea or orthopnea. Exam Vital Signs (past 8 hours): - 02/04/19 08:00 02/04/19 08:40 02/04/19 08:51 Temperature 98.5 F Pulse Rate 106 H 91 H Respiratory Rate 18 Blood Pressure 138/75 138/75 Pulse Oximetry 92 91 Fraction of Inspired Oxygen 0.28 Oxygen Delivery Method Nasal Cannula Oxygen Flow Rate 2 Narrative Exam Narrative: General: Elderly gentleman sitting in bedside chair and in no acute distress, well-developed, well-nourished, appropriately interactive HEENT: Normocephalic, atraumatic. External ears without defect. Pupils equal, round, and reactive to light. Anicteric sclerae, moist conjunctivae, and no lid lag. Oropharynx free of erythema and cobble stoning with moist mucosa. Neck: Supple with full range of motion. No jugular venous distension. No lymphadenopathy or thyromegaly. Cardiovascular: Irregularly irregular without murmurs, rubs, or gallops appreciated. Pulmonary: Diminished throughout but improved aeration, clear to auscultation bilaterally with fine bibasilar crackles. No wheezes or rhonchi. Normal respiratory effort with no use of accessory muscles. Abdomen: Soft, obese, nontender, nondistended. No hepatosplenomegaly or masses appreciated. Extremities: No clubbing or cyanosis. Bilateral lower extremities with dressings in place C/D/I and no surrounding erythema. Skin: Normal temperature, turgor, and texture; no rash, ulcers, or subcutaneous nodules appreciated. Neurological: Cranial nerves grossly intact. Psychiatric: Normal mood and affect. Appears alert and oriented to person, place, and time. Objective Labs Result Diagrams: 02/03/19 04:30 02/04/19 04:40 Labs: Laboratory Results - last 24 hr 02/04/19 02/04/19 02/04/19 04:36 04:40 04:40 PT 25.7 H D INR 2.2 H ABG pH 7.29 L ABG pCO2 63.3 H* ABG pO2 79 L ABG HCO3 30 H ABG Total CO2 32 H ABG O2 Saturation 94 L ABG Base Excess 4.0 H FiO2 0.28 Sodium 143 Potassium 4.9 Chloride 106 Carbon Dioxide 32 BUN 75 H Creatinine 2.50 H Estimated GFR 24.8 L BUN/Creatinine Ratio 30.0 H Glucose 117 H Calcium 10.2 Magnesium 2.5 H Assessment & Plan Assessment & Plan narrative: Yair Torres is an 83-year-old male with a past medical history significant for hypertension, hyperlipidemia, systolic congestive heart failure with EF 35-40%, chronic atrial fibrillation on warfarin, chronic kidney disease stage III, hypothyroidism, GERD, and 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 1. Acute on chronic hypoxemic and hypercarbic respiratory failure, present on admission. Acute portion resolved. -Secondary to exacerbation of congestive heart failure in the setting of COPD with a 70 pack year smoking history and obstructive sleep apnea. Patient was previously on home oxygen which was discontinued for unclear reasons. -Patient was acutely hypoxemic upon arrival the emergency department with a PF ratio of 245 and hypercarbic with PCO2 62.8. -ABG demonstrated respiratory acidosis with metabolic compensation: pH of 7.28, pCO2 62.8, PO2 of 82, bicarb 29 and a base excess of 2. -Consulted respiratory therapy for evaluation and treatment. Continue BiPAP at all times while napping or sleeping. Continue supplemental oxygen as necessary to keep oxygen saturations 88-92%. Currently on 2 L nasal cannula. Patient was hypoxemic at rest with oxygen saturation of 87% on room air. On 2 L nasal cannula his oxygen saturations improved to 92%. On 2 L nasal cannula with exertion his oxygen saturations were 88% and improved to 90% on 3 L. Ordering home oxygen, 2 L at rest and 3 L with exertion to treat his COPD and chronic hypoxemic respiratory failure. -Home BiPAP evaluation failed for treatment of his chronic respiratory failure. We are currently working on obtaining a Trilogy system for the patient after yesterday's event. -Continue to diurese as below. 2. Acute systolic congestive heart failure exacerbation, present on admission. Resolving. -Patient recently had Lasix dose adjusted by his estimator printing Dr. Louis. The patient does not report weight gain but has had progressive dyspnea for the last week. -BNP is 337. -Chest x-ray interpreted by me demonstrated significant pulmonary edema with left pleural effusion finds. No evidence of pneumonia, procalcitonin is negative, no leukocytosis, and lactic acid is normal at 1.0. -Previous echocardiogram in 11/2017 demonstrated moderate global hypokinesis with LV function moderately reduced with EF 35-40%. Repeat echocardiogram unchanged. -Received sublingual nitroglycerin 0.4 mg x1 furosemide 60 mg IV x1 in ED. Patient received home furosemide 80 mg PO this morning and will give an additional furosemide 40 mg IV x 1 and continue furosemide 40 mg IV daily. Will transition to home PO regimen upon discharge. -Continue strict I&O (Coates catheter placed in ED for accurate I&O's) and daily weights. Net -1.5 L. -Continue fluid restriction of 1.5 L and low-sodium diet. -Patient with bilateral pleural effusions and pericardial effusion which is likely secondary to volume overload. Pleural effusions are improving and given size of pericardial effusion this has likely been present for a long time as he is hemodynamically stable. These will require outpatient follow up with repeat echocardiogram and imaging. 3. Acute kidney injury versus worsening chronic kidney disease stage III, present on admission. Active. -Baseline creatinine appears to be 2.2 per outpatient records. Initial creatinine of 2.7 with eGFR is 22.7 and calculated creatinine clearance corrected for weight is 33. Trended down to 2.4 and has stabilized around 2.4-2.7 since likely representing a new baseline. -Patient currently does not have a manager lan but has an upcoming appointment with Nephrology, Dr. Ricky Boss at [facility]. -Avoid nephrotoxic agents other than diuretic therapy for management congestive failure. -Continue to renally dose medications as appropriate. -Continue to monitor renal function closely. 4. Chronic atrial fibrillation on warfarin with supratherapeutic INR, present on admission. Stable. -EKG demonstrated atrial fibrillation with ventricular rate of 89. -Patient denies chest pain but endorses occasional palpitations. -Potassium is 5.0 and magnesium is 2.4. Discontinued magnesium oxide. -Not currently on a rate-controlling medication. -Patient takes warfarin 7.5 mg 6 times per week and 5 mg once per week and is presently on hold for supratherapeutic INR previously 6 now 2.2. Unclear why patient is supratherapeutic other than probable underlying liver disease with mildly low platelets, albumin and elevated INR. Continue to monitor INR closely and will restart coumadin today at 5 mg daily. Continue outpatient monitoring and follow-up [facility]. 5. Elevated troponin of unclear significance, present on admission. Stable. -Patient denies chest pain. -EKG demonstrated atrial fibrillation without ischemic changes. -Serial troponins mildly elevated and stable at 0.062, 0.061, 0.060 in setting of chronic kidney disease. No need to further trend. 6. Diabetes mellitus type 2, non-insulin using, chronic, present on admission, active -Hemoglobin A1c 5.8% indicative of tight glycemic control and prediabetic range. -Continue liraglutide 6 mg SQ daily and monitor closely for hypoglycemia as low risk with this medication but incidence still 2-3% with monotherapy. -Continue [facility] blood glucose checks and will cover with low-dose correctional scale insulin. 7. Chronic obstructive pulmonary disease, present on admission. Stable. -Does not represent COPD exacerbation. -Patient endorses a 70 pack year history of smoking. He has no current inhalers and presents with no wheezing. -Patient presented with hypoxemic and hypercarbic respiratory failure as above and ABG demonstrated respiratory acidosis with metabolic compensation: pH of 7.28, pCO2 62.8, PO2 of 82, bicarb 29 and a base excess of 2. -Continue to treat hypoxemic and hypercarbic respiratory failure as above. 8. Hypertension, chronic, present on admission. Stable. -Continue home hydralazine 50 mg 3 times daily, isosorbide mononitrate 30 mg daily and losartan half normal dose at 25 mg daily. Discontinued eplerenone as this is contraindicated with creatinine greater than 2. 9. Bullous pemphigoid, chronic, present on admission. Stable. -Patient receives wound care through [facility]. Patient previously with lesions on the right leg which have been successfully treated with betamethasone. Recent lesions have developed on the left lower leg with wound care instructions stating to do dressing changes every other day with betamethasone and Saran wrap and will continue. 10. Gastroesophageal reflux, chronic, present on admission. Stable. -Started and continue ranitidine 150 mg daily for GI prophylaxis. 11. Hypothyroidism, chronic, present on admission. Stable. -TSH normal at 3.68. -Continue home levothyroxine with alternating dose of 200 and 300 mcg daily. 12. Gout, chronic, present on admission. Stable. -Held allopurinol due to JAYE as above and will restart at lower renal dose 100 mg daily upon discharge. -Continue losartan at half normal dose 25 mg daily due to JAYE for hypertension with additional uric acid lowering affect. 13. Morbid obesity, chronic -BMI is 47.2 -Consulted dietitian but not obtainable as they are not available on weekends. 14. Bilateral pleural effusions, present on admission - management as noted above in #2. 15. Moderate Pericardial Effusion - management as noted above in #2. Code status: Full code VTE prophylaxis: Bilateral compression stockings, long-term anticoagulation on warfarin, supratherapeutic INR at 3.6 Disposition: Patient likely to discharge home with home health versus alf facility for rehabilitation tomorrow.
--- NOTE | 2019-02-04 12:09 | OT.IP.EVAL ---
Current Diagnoses Bullous disorder, unspecified (02/01/19) Past Medical History (Last Updated 02/02/19 @ 00:45 by ADRIAN Salgado) Bullous dermatoses (Acute) CHF (congestive heart failure) (Acute) Chronic atrial fibrillation (Acute) Chronic kidney disease (Acute) COPD (chronic obstructive pulmonary disease) (Acute) Gastroesophageal reflux (Acute) Hypertension (Acute) Hypothyroidism (Acute) Morbid obesity with BMI of 45.0-49.9, adult (Acute) Obstructive sleep apnea of adult (Acute) Surgical History (Last Updated 02/02/19 @ 00:45 by ADRIAN Salgado) History of skin graft (Acute) History of tonsillectomy (Acute) History of total bilateral knee replacement (Acute) History of uvulectomy (Acute) Occupational Therapy Inpatient Evaluation/Re-Eval M1 PT/OT-IP Prior Functional Status Start: 02/03/19 17:02 Freq: NEEDED Status: Active Protocol: Document 02/04/19 12:09 LOYD (Rec: 02/04/19 16:36 FERNANDO [id number]) Medical Review Prior Functional Status Medical History Reviewed Yes Diet/Fluid Consistency Regular Communication WFL Mobility and Gait Independent gait with cane, community distances Activities of Daily Living and IADL's Independent with basic ADL's, helps with wound care and bandaging on LE's Prior Functional Level (Other details) no oxygen at home in recent past, went to SNF rehab in past for LE wounds which required skin grafting Social History Household Members spouse Living Arrangements House Number of Floors (Floors) Two Floors Number of Stairs To Enter/Railing? Pt plans to d/c to their single level condo in [place] which has 2 stairs to enter ( no rail). Home Environment Standard Height Toilet,Tub/ Shower Home Equipment Straight Cane,Hand Held Shower ,Long Handled Sponge Employment Status Retired Additional Social History Comment pt states he is having grab bars installed in tub shower area and railing put in by stairs; not here this session to confirm M2 OT-IP Current Condition Start: 02/04/19 09:13 Freq: Status: Active Protocol: Document 02/04/19 12:09 LOYD (Rec: 02/04/19 16:36 FERNANDO [id number]) Occupational Therapy Current Condition Current Condition Evaluation Date 02/04/19 Treatment Diagnosis decr'd act izaiah,ADLs,mobility with DX:CHF/COPD exacerbation,JAYE, pericardial effusion Diagnosis Onset Date 02/01/19 Post Operative Precautions Other Precautions 2L O2 at rest, 3L w/activity; watch O2 sats, fall risk, EF 35% M3 OT- IP Subjective and Pain Start: 02/04/19 09:13 Freq: Status: Active Protocol: Document 02/04/19 12:09 PJM (Rec: 02/04/19 16:36 PJ [email or web address]) OT- Subjective Occupational Therapy Visit Type Type Initial Evaluation Visit Start Time 11:15 Visit Stop Time 12:09 Total Visit Minutes 54 Occupational Therapy Visit Comments Patient Comments I feel good today. A shower would be great. Patient/Caregiver Goals to go home tomorrow OT Pain Assessment Pain When Pain Assessed After Treatment Pain Present Pain Present Denied Pain M4 OT- IP ADL's Start: 02/04/19 09:13 Freq: Status: Active Protocol: Document 02/04/19 12:09 PJM (Rec: 02/04/19 16:36 PJ [id number]) OT [id number] General Evaluation Self-Feeding Ability Independent OT ADL-Grooming General Evaluation Grooming Ability Independent Areas Needing Assistance Face Washing Comments OT Grooming Comments seated in shower OT ADL-Oral Care Comments Oral Care Comments did not occur this session, no deficits identified that would interfere OT ADL-Dressing General Eval Upper Body Dressing Ability Standby Assistance Lower Body Dressing Ability Total Assistance Areas Needing Assistance Socks Comments OT Dressing Comments SBA to don gown after shower, total assist with compression hose and socks due to BLE wounds OT ADL-Toileting Comments OT Toileting Comments did not occur this session OT ADL-Bathing Bathing Type Bathing Type Shower General Evaluation Bathing Ability Minimal Assistance Areas Needing Assistance Wash/Dry Back Devices Bathing Equipment Long Handled Sponge or [place], Hand Held Shower Sprayer, Shower Chair without Arms,Grab Bars Comments OT Bathing Comments Pt did well with seated (80%) and standing (20%) shower with use of wall grab bars and I Fit shower seat. Pt states he does not have a shower chair at home. Provided education to pt's sister in law re: resources for tub seat and recommend grab bars by tub shower combo at home. Pt has long bath sponge at home. M5 OT- IP IADL's Start: 02/04/19 09:13 Freq: Status: Active Protocol: Document 02/04/19 12:09 PJM (Rec: 02/04/19 16:36 PJ [id number]) OT-Instrumental Activities of Daily Living Deficits IADL Deficits Identified Deficits Home Safety Awareness Awareness of Need for Assistance at Home Good Awareness Home Safety Comments provides assist with all IADLS at home per pt report. Medication Management Medication Management Caregiver Provides Supervision Money Management Money Management Caregiver Provides Supervision Meal Preparation Meal Preparation Caregiver Provides Assist Dial Screw Assembler Dial Screw Assembler Caregiver Provides Assist Driving Driving Caregiver Provides Assist M6 OT- IP Functional Cognition Start: 02/04/19 09:13 Freq: Status: Active Protocol: Document 02/04/19 12:09 PJM (Rec: 02/04/19 16:36 PJ [email or web address]) Cognitive Factors Limiting Selfcare Function Cognitive Ability Level of Alertness Alert Patient Orientation Name Attention Span Ability Capable of Focused Attention, Capable of Sustained Attention Ability to Follow Commands Able to Follow One Step Commands Memory Description Short Term Impaired Safety Awareness Underestimates Need for Assistance Problem Solving Ability Needs Assist to Identify Solutions Cognitive Comments Cognitive Assessment Comments Pt alert and generally oriented but had difficulty recalling details of home layout and set up. not here to confirm this session. OT- Vision and Hearing OT- Hearing Assessment OT- Hearing Assessment WFL OT- Vision Assessment Visual Acuity WFL M7 OT- IP Mobility and Balance Start: 02/04/19 09:13 Freq: Status: Active Protocol: Document 02/04/19 12:09 PJM (Rec: 02/04/19 16:36 [facility] [id number]) OT-Transfer Assessment Sit to and From Stand Sit to and from Stand Contact Guard Assistance,1 Person Assistance,Use of Upper Extremities Transfers Transfer Ability Contact Guard Assistance,1 Person Assistance Technique Transfer Destination Chair,Shower Stall Transfer Technique Stand Step Pivot Devices Transfer Assistive Devices Gait Belt,Front Wheeled Walker Comments Mobility Comments Pt did well with shower stall transfer. Note pt has tub shower combo at [facility] and strongly recommend bars. Pt will need tub seat for safety. OT- Gait Assessment Gait Gait Assistance Required: Contact Guard Assist Distance (Feet) 160 Assistive Devices Assistive Device Gait Belt,Front Wheeled Walker Comments Gait Ability Comments No LOB noted; O2 sats stable on 3 L in mid to low 90's. OT- Balance Assessment Sitting Balance and Reactions Static Sitting Balance Ability Good Dynamic Sitting Balance Ability Good Standing Balance and Reactions Static Standing Balance Ability Good Dynamic Standing Balance Ability Good Comments Other Balance Tests/Deviations/Treatment Balance assessed in shower : with use of grab abrs for standing portions of shower. M8 OT- IP Objective Assessments Start: 02/04/19 09:13 Freq: Status: Active Protocol: Document 02/04/19 12:09 PJM (Rec: 02/04/19 16:36 PJ [id number]) OT Gross Range of Motion Upper Extremity Range of Motion Assessment Within Functional Limits OT Strength Upper Extremity Strength Assessment Within Functional Limits Hand Graduate Research Assistant Strength Hand Dominance Right OT- Coordination Assessment Comments Coordination Comments BUE WFL for ADLS OT-Muscle Tone Assessment Muscle Tone WNL Yes OT Sensation Assessment Comments Summary Comments WFL BUE per pt M9 OT- IP Assessment and Plan Start: 02/04/19 09:13 Freq: Status: Active Protocol: Document 02/04/19 12:09 PJ (Rec: 02/04/19 16:36 PJ [email or web address]) OT Summary Assessment and Plan Potential Analytic Complexity at Evaluation Low Summary OT Impairments Functional Mobility,Dressing, Toileting,Bathing,Toilet Transfers,Shower Transfers Assessment Summary Low complexity OT assessment completed on this 83 yr old male admitted with acute respiratory failure due to CHF /COPD exacerbation and pericardial effusion. Note pt's EF of 35%. Pt is alert, generally oriented but with some short term memory deficits noted re: home layout . Pt appears to have some decreased insight re: current medical issues but is pleasant and cooperative with good effort and participation. Pt currently has performance deficits in lower body dressing that were present prior to admission due to need for BLE wound care and use of compression hose. has been assisting with this at home. Pt appears close to his baseline level of function with upper body dressing and grooming. Toileting to be assessed. Pt needs min assist with shower as noted above and needs shower seat and grab bars for safety. Pt is close SBA to CGA with functional mobility and shower stall transfer today and walked 160 ft on 3L with stable O2 sats. Anticipate pt will d/c home with HH PT/OT/RN when medically stable and clears P.T. Pt will be on home O2-2 L at rest, 3 w/activity with Trilogy use at night per chart notes. Goals Toileting Goal Independent Bathing Goal Standby Assistance,Grab Bars, Hand Held Shower Sprayer,Long Handled Sponge or [place] Toilet Transfer Goal Standby Assistance,Raised Toilet Seat,Grab Bars Shower Transfer Goal Contact Guard Assistance,Tub/ Shower Combination Patient/Caregiver Education Goal Demonstrate Energy Conservation and Pacing, Caregiver Independent Assisting Patient Days to Meet Goals 2 Frequency of Treatment Frequency Of Treatment Once a Day Treatment Plan OT Treatment Plan ADL Training,Functional Mobility,Patient/Family Education,Discharge Planning Discharge Recommendations OT Discharge Recommendations Home with 03/10 Assist,Home Health Home Equipment Needs tub seat, grab bars by tub and toilet
--- NOTE | 2019-02-04 12:20 | PT-IP ANOTE ---
Pt in shower with OT, will check back with pt after lunch.
[2019-02-04] MEDS: BETAMETH DIP AUGM 0.05% OINT 15 GM 1 APPLIC TOP (12:25)
--- NOTE | 2019-02-04 13:39 | DIET.PN ---
Dietary Progress Note Assessment: Mr. Torres is an 83 yom with hx of A-fib and SOB x 11 days. He has well-controlled diabetes and obesity class III. His [id number] is present for our visit. She reports no dietary restrictions at home. He admits to liking salty foods and additionally salting his foods. Common karen include eggs, cheese, meat, oatmeal. He is taking warfarin. HT: 177.8 cm WT: 147.5kg IBW: 73kg BMI: 46.7 Labs: INR: 3.1, 3.6, 2.2 BUN: 75 Cr: 2.5 eGFR: 24.8 Gluc: 117 M.5 MNA: 14 Joaquin: 20 Nutrition Diagnosis: Overweight/Obesity r/t excessive energy intake, not ready for diet change aebBMI obese class III, overconsumption of high-fat and/or energy dense foods. Interventions: 1. Eat a balanced diet with whole grains, fruits and vegetables, and lean protein sources. 2. Achieve and maintain a healthy weight. 3. Choose heart-healthy unsaturated fats. Limit saturated fats, trans fats, and cholesterol intake. Eat more plant-based or vegetarian meals using beans and soy foods for protein. 4. Eat whole, unprocessed foods to limit the amount of sodium (salt) you eat. (2g) 5. Limit refined carbohydrates especially sugar, sweets and sugar-sweetened beverages. 6. If you drink alcohol, do so in moderation: one serving per day (women) and two servings per day (men). 7. Provided calorie goal and 5 day menu plan. 8. Keep your intake of high vitamin K foods consistent. You might plan to eat no more than ? cup of these foods per day. If you like these foods and eat them often, you can eat more, but you should be consistent. 9. Do not have large changes in the medium vitamin K foods you eat. Diet Order: HH/ Fluid restriction (1500ml) EER: 3299-8465 calories @ 30-35 junaid/kg IBW; 95 g pro @ 1.3 g/kg IBW Monitoring/Evaluations: weight, po's, labs
--- NOTE | 2019-02-04 14:39 | RT ---
4 HOURS OF TECH TIME ADDED FOR TIME SPENT ARRANGING TRILOGY UNIT FOR PATIENT WITH APRIA.
[2019-02-04] MEDS: WARFARIN 5 MG TABLET PO (17:12)
[2019-02-04] MEDS: ATORVASTATIN 10 MG TABLET PO (17:12)
--- NOTE | 2019-02-04 22:40 | PC.NURSE ---
Evening Shift Note: Pt with uneventful shift. Pt received on 2 L NC sitting up in chair. Denies pain, denies SOB, pt is mildly tachypneic, RR 24. SPO2 mid 90s. Pt tolerating diet. at bedside, discussing concerns for pt to go home rather than to care facility after discharge. Pt with several excoriation/small skin tears on L upper calf, pt's reports that these are similar to pt's wounds on bottom of leg, discussed skin care options with MD, order received to place steroid ointment and saran wrap as with other wound care. Pt otherwise with no complaints. Bipap at night. Maintaining fluid restriction. Call light in reach, bed alarm on and functioning.
[2019-02-05] VITALS (9 sets, daily range): BP systolic 112–134; BP diastolic 53–94; PULSE 84–106; RESP 20–26; TEMP 31.9–36.8; O2SAT 93–97
[2019-02-05 05:08] LABS: INR 1.8 (0.9-1.3); Prothrombin Time 20.8 SECONDS (10.1-12.7)
[2019-02-05 05:15] LABS: BUN Creatinine Ratio 29.2 (6-22); Blood Urea Nitrogen 76 mg/dL (9-20); Calcium 10.1 mg/dL (8.4-10.2); Carbon Dioxide 33 mmol/L (22-32); Chloride 108 mmol/L (98-107); Estimated Glomerular Filt Rate 23.7 mL/min (>60); Glucose 117 mg/dL (80-110); HEMOLYSIS < 15 (0-50); Magnesium 2.5 mg/dL (1.6-2.3); Phosphorous 4.3 mg/dL (2.3-3.7); Potassium 4.9 mmol/L (3.4-5.1); Sodium 145 mmol/L (137-145)
[2019-02-05] MEDS: LEVOTHYROXINE 100 MCG TABLET 300 MCG PO (05:59)
[2019-02-05] MEDS: DORZOLAMIDE 2% OPHTH 10 ML 1 DROPS EYE-LEFT (08:46)
[2019-02-05] MEDS: NYSTATIN POWDER 15GM 1 APPLIC TOP (08:46)
[2019-02-05] MEDS: ISOSORBIDE MONONITRATE ER 30 MG TABLET PO (08:46)
[2019-02-05] MEDS: MAGNESIUM OXIDE 400 MG TABLET PO (08:46)
--- NOTE | 2019-02-05 08:52 | OT.IP.TRT ---
Current Diagnoses Bullous disorder, unspecified (02/01/19) Occupational Therapy Treatment Note M2 OT-IP Current Condition Start: 02/04/19 09:13 Freq: Status: Active Protocol: Document 02/04/19 12:09 PJM (Rec: 02/04/19 16:36 PJM [id number]) Occupational Therapy Current Condition Current Condition Evaluation Date 02/04/19 Treatment Diagnosis decr'd act izaiah,ADLs,mobility w /DX:CHF/COPD exacerb,JAYE, pericardial effusion Diagnosis Onset Date 02/01/19 Post Operative Precautions Other Precautions 2L O2 at rest, 3L w/activity; watch O2 sats, fall risk M3 OT- IP Subjective and Pain Start: 02/04/19 09:13 Freq: Status: Active Protocol: Document 02/05/19 10:58 [facility] (Rec: 02/05/19 11:13 [facility] [id number]) OT- Subjective Occupational Therapy Visit Type Type Treatment Note Visit Start Time 08:52 Visit Stop Time 09:20 Total Visit Minutes 28 Occupational Therapy Visit Comments Patient Comments Pt wanting to use the bathroom . Patient/Caregiver Goals Pt wanting to go home today. OT Pain Assessment Pain When Pain Assessed At Rest Pain Present Pain Present Denied Pain M4 OT- IP ADL's Start: 02/04/19 09:13 Freq: Status: Active Protocol: Document 02/05/19 10:58 [facility] (Rec: 02/05/19 11:13 [facility] [id number]) OT ADL-Grooming General Evaluation Grooming Ability Independent Comments OT Grooming Comments Standing at the sink. OT ADL-Dressing General Eval Lower Body Dressing Ability Minimal Assistance Areas Needing Assistance Underpants/Brief Comments OT Dressing Comments [place] to assist pt to use utility sales representative to help tessy brief over his feet as getting hung up on his socks. OT ADL-Toileting General Evaluation Areas Needing Assistance Perform Perineal Hygiene Devices Toileting Assistive Devices Grab Bars Comments OT Toileting Comments Pt having difficulty with completeness for hygiene after bowel movement. M5 OT- IP IADL's Start: 02/04/19 09:13 Freq: Status: Active Protocol: Document 02/04/19 12:09 PJM (Rec: 02/04/19 16:36 PJM [id number]) OT-Instrumental Activities of Daily Living Deficits IADL Deficits Identified Deficits Home Safety Awareness Awareness of Need for Assistance at Home Good Awareness Home Safety Comments provides assist with all IADLS at home per pt report. Medication Management Medication Management Caregiver Provides Supervision Money Management Money Management Caregiver Provides Supervision Meal Preparation Meal Preparation Caregiver Provides Assist Psychology Assistant Psychology Assistant Caregiver Provides Assist Driving Driving Caregiver Provides Assist M6 OT- IP Functional Cognition Start: 02/04/19 09:13 Freq: Status: Active Protocol: Document 02/04/19 12:09 PJM (Rec: 02/04/19 16:36 PJM [id number]) Cognitive Factors Limiting Selfcare Function Cognitive Ability Level of Alertness Alert Patient Orientation Name Attention Span Ability Capable of Focused Attention, Capable of Sustained Attention Ability to Follow Commands Able to Follow One Step Commands Memory Description Short Term Impaired Safety Awareness Underestimates Need for Assistance Problem Solving Ability Needs Assist to Identify Solutions Cognitive Comments Cognitive Assessment Comments Pt alert and generally oriented but had difficulty recalling details of home layout and set up. not here to confirm this session. OT- Vision and Hearing OT- Hearing Assessment OT- Hearing Assessment WFL OT- Vision Assessment Visual Acuity WFL M7 OT- IP Mobility and Balance Start: 02/04/19 09:13 Freq: Status: Active Protocol: Document 02/05/19 10:58 [facility] (Rec: 02/05/19 11:13 [facility] [id number]) OT-Transfer Assessment Sit to and From Stand Sit to and from Stand Standby Assistance,Moderate Assistance Transfers Transfer Ability Standby Assistance,Contact Guard Assistance,1 Person Assistance Technique Transfer Destination Chair,Toilet Devices Transfer Assistive Devices Gait Belt,Front Wheeled Walker Comments Mobility Comments Pt not wanting to sit on BSC and therefore wanting to sit on low commode. Pt heavy use of grab bar to lower himself down and MODA to stand. Pt on 3L and O2 reading 91-94% while up for bathroom needs. M8 OT- IP Objective Assessments Start: 02/04/19 09:13 Freq: Status: Active Protocol: Document 02/04/19 12:09 PJM (Rec: 02/04/19 16:36 PJM [id number]) OT Gross Range of Motion Upper Extremity Range of Motion Assessment Within Functional Limits OT Strength Upper Extremity Strength Assessment Within Functional Limits Hand Television Receiver Analyzer Strength Hand Dominance Right OT- Coordination Assessment Comments Coordination Comments BUE WFL for ADLS OT-Muscle Tone Assessment Muscle Tone WNL Yes OT Sensation Assessment Comments Summary Comments WFL BUE per pt M9 OT- IP Assessment and Plan Start: 02/04/19 09:13 Freq: Status: Active Protocol: Document 02/05/19 10:58 [facility] (Rec: 02/05/19 11:13 [facility] [id number]) OT Summary Assessment and Plan Potential Rehabilitation Potential Good Analytic Complexity at Evaluation Low Summary OT Impairments Functional Mobility,Dressing, Toileting,Bathing,Toilet Transfers,Shower Transfers Progress Towards Goals Progressing Toward Goals Assessment Summary Pt doing better today and looking to go home with HH today. Pt's is supportive and capable to assist pt with needs. Goals Toileting Goal Independent Bathing Goal Standby Assistance,Grab Bars, Hand Held Shower Sprayer,Long Handled Sponge or [place] Toilet Transfer Goal Standby Assistance,Raised Toilet Seat,Grab Bars Shower Transfer Goal Contact Guard Assistance,Tub/ Shower Combination Patient/Caregiver Education Goal Demonstrate Energy Conservation and Pacing, Caregiver Independent Assisting Patient Frequency of Treatment Frequency Of Treatment Once a Day Treatment Plan OT Treatment Plan ADL Training,Functional Mobility,Patient/Family Education,Discharge Planning Discharge Recommendations OT Discharge Recommendations Home with 03/10 Assist,Home Health Home Equipment Needs tub seat, grab bars by tub and toilet
[2019-02-05] MEDS: DOCUSATE 100 MG CAPSULE PO (09:18)
[2019-02-05] MEDS: HYDRALAZINE 25 MG TABLET 50 MG PO ×2 (09:18→14:57)
[2019-02-05] MEDS: LOSARTAN 50 MG TABLET 25 MG PO (09:19)
--- NOTE | 2019-02-05 09:22 | PT.IPTN ---
reviewed by Velvet Appiah PTA Current Diagnoses Bullous disorder, unspecified (02/01/19) Physical Therapy Treatment Note M2 PT-IP Current Condition Start: 02/03/19 17:02 Freq: NEEDED Status: Active Protocol: Document 02/03/19 16:41 DLM (Rec: 02/03/19 17:16 DLM [id number]) Physical Therapy Current Condition Current Condition Evaluation Date 02/03/19 Treatment Diagnosis impaired gait and decreased activity tolerance Onset Date 02/01/19 Precautions Other Precautions oxygen needs: 2 LPM at rest and 3 LPM with activity per respiratory M3 PT-IP Subjective Start: 02/03/19 17:02 Freq: NEEDED Status: Active Protocol: Document 02/05/19 09:22 BRUCE (Rec: 02/05/19 10:16 BRUCE [id number]) Subjective Physical Therapy Visit Type Type Treatment Note Visit Start Time 09:22 Visit Stop Time 09:47 Total Visit Minutes 25 Notes Treatment supervised by MARK Melara. Number of SENIOR TELLER Visits 2 Physical Therapy Visit Comments Patient Comments Pt is agreeable to work with therapy. Patient Goals get better, go home M4 PT-IP Mobility and Gait Start: 02/03/19 17:02 Freq: NEEDED Status: Active Protocol: Document 02/05/19 09:22 BRUCE (Rec: 02/05/19 10:16 [facility] [id number]) PT-Transfer Assessment Sit to and From Stand Sit to and from Stand Standby Assistance Equipment Transfer Assistive Device Gait Belt,Front Wheeled Walker Transfers Transfer Destination Chair Transfer Technique Pt ambulated w/ FWW. Transfer Ability Level of Assist Standby Assistance Comments Mobility Comments Pt able to stand from chair w/ SBA. Min cues to bring FWW all the way back to chair when sitting. Pt left in chair w/ all needs in reach. Gait Assessment Gait Gait Assistance Required: Standby Assistance Distance (Feet) 260 Able to Maintain Weight Bearing Status Yes During Gait Assistive Devices Assistive Device Gait Belt,Front Wheeled Walker Comments Gait Comments Pt ambulated ~260 ft w/ FWW and SBA. Pt took 1 standing rest breaks, O2 was consistent 92% on 3L while ambulating. Pt demonstrated good standing balance and was able to maintain single leg stance on each side w/ FWW for ~15 sec while SENIOR TELLER fixed his socks. Normal step thru gait pattern and proper usage of FWW throughout ambulation. PT-Balance Assessment Sitting Balance and Reactions Static Sitting Balance Ability Good Dynamic Sitting Balance Ability Good Standing Balance and Reactions Static Standing Balance Ability Good Dynamic Standing Balance Ability Good Device Used FWW M5 PT-IP Objective Assessments Start: 02/03/19 17:02 Freq: NEEDED Status: Active Protocol: Document 02/03/19 16:41 DLM (Rec: 02/03/19 17:16 DLM [id number]) Orientation Orientation/Cognition Level of Alertness Alert Orientation Name,Age,Birthday,Month,Date, Year,Day of Week,Place, Situation Language Function Ability No Deficits Noted Safety Awareness Understands Safety Issues Memory Description No Deficits Noted Gross Range of Motion Upper Extremity ROM Assessment Within Functional Limits Lower Extremity ROM Assessment Within Functional Limits Strength Upper Extremity Strength Assessment Within Functional Limits Lower Extremity Strength Assessment Within Functional Limits Coordination Assessment Gross Coordination Gross Coordination WNL Sensation Assessment Comments Sensation Comments he reports no numbness in his feet today but that he typically does not numbness in bilateral feet Muscle Tone Muscle Tone WNL Yes M6 PT-IP Treatment Start: 02/03/19 17:02 Freq: NEEDED Status: Active Protocol: Document 02/05/19 09:22 BRUCE (Rec: 02/05/19 10:16 BRUCE [id number]) Physical Therapy Treatment Education Education Provided Safety M7 PT-IP Assessment and Plan Start: 02/03/19 17:02 Freq: NEEDED Status: Active Protocol: Document 02/05/19 09:22 BRUCE (Rec: 02/05/19 10:16 BRUCE [id number]) PT Summary Assessment and Plan Potential Rehabilitation Potential Good Status of Condition at Evaluation Evolving Summary Assessment Summary Pt was eager to work with PT and ambulate. SBA for sit<> stand from chair and ambulation w/ FWW. O2 sats 92% on 3L during activity. Proper use of FWW, able to perform single leg stance to adust socks. Min cues to bring FWW back to chair when sitting. Goals Bed Mobility Goal Independent Transfer Goal Independent,Front Wheeled Walker Gait Goal Standby Assistance,Front Wheel Walker,Four Wheel Walker Gait Distance 150 feet Days to Meet Goals 3 Frequency of Treatment Frequency Of Treatment Twice a Day Treatment Plan Physical Therapy Treatment Plan Bed Mobility Training,Transfer Training,Gait Training, Therapeutic Exercise,Discharge Planning Other Recommendations and Next Treatment Bed mobility and stair Focus training Recommendations To Nursing Amount of Assist Needed 1 Person Assist Discharge Recommendations PT Discharge Recommendations Home with Assistance,Home Health Equipment Needed for Home Before 4WW for home use Discharge
--- NOTE | 2019-02-05 10:11 | CM.DPC ---
Addendum entered by Kaycee Mendez LPN 02/05/19 15:50: Was able to speak with [facility] just now and went over the issue re the PCP: Dr. Cobb. She will follow up with their team. She is aware the the d/c summary still remains in draft by Dr. Huynh and is thus not suitable yet to sent. The d/c is going forward as per Dr. Huynh's plan. Offered to have CM sp Wanda fax the dc summary tomorrow to [facility] and she said this would be fine. Will alert Wanda to same. Pt is doing stairs with PT this afternoon and then is expected to d/c to [place] as planned. Addendum entered by Kaycee Mendez LPN 02/05/19 12:40: Met at length with Sharita and NINO Melgoza who helped pt understands the various pieces of care pt will need at home. Sharita notes that with all the providers pt has there has been confusion in past re who is managing. She now confirms PCP is Dr. Lizzy Cobb (not Thomas Gallegos as per face sheet) [place] [id number] [facility] [id number]. fax: [phone]. NINO Floyd is now faxing clinical info to Dr. Cobb as well as to pt's other providers as per requested by pt and Sharita. Sharita remains anxious and tearful re the home plan. NINO Floyd is calling Dr. Huynh to see it he can update and reassure her. Will follow closely. Reviewed Face/Face form completed prior by colleague Angella and Dr. Malhotra. Amended the PCP to reflect Dr. Cobb and her specific information. is left for [facility] and will fax this docuement to her now. Copy to [facility] to scan. Addendum entered by Kaycee Mendez LPN 02/05/19 11:36: Did receive a call from Sharita's sister (confirmed this is same person identified as pt's sister in below note). She expressed her great concern re pt with a d/c to home setting today. She said she had been at the hospital for most of the days pt has been here and had talked with the physicians and the care team members she is does not understand why pt is expected to d/c today. She confirmed she had a headache and would not be here at the hospital today but that she did tell her sister she would meet her and pt at the [place] condo to help her get him in the door. Did go over what Dr. Huynh said again Rounds (his note for today is not yet in place). Will be following.....at professional services manager's advice will focus support on the the physician's d/c plan and try to help family understand same. Hopefully Dr. Huynh will be able to talk with Sharita when she arrives. Original Note: DCP: continued: case received, EMR reviewed. Discussed in Team Rounds. Dr. Huynh will see pt again today. He confirmed that pt was doing well for the home setting with addition of HHS. (Have spoken with [facility] who confirms they have all that is needed to see pt on 02/08 expect the d/c summary and date of the d/c). Dr. Huynh is aware that pt's is expressing anxiety re taking him home to their [place] condo/co-op but he again confirms the home setting is appropriate. Have spoken a few times this morning by phone with pt's Sharita in followup and also with therapists who note the rather complex family dynamics. Pt's sister has apparently been part of the hourly caregiver training but per Sharita she will not be at the hospital today as she has a bad headache and I do not expect she will be helping in [place]. Our condo is very small. Did discuss snf issue with Sharita prior to Rounds. She was aware that [facility] in [place] had reviewed and rejected referral due to lack of skillable needs. She did request that [facility] review and a vm was left earlier today for August/ but after discussion with Dr. Newton in Rounds will not pursue this option. Did leave a vm for Sharita after Rounds re the plan for home today and HH as per Dr. Huynh. RT is working with [employer] on the Trilogy and this is expected to be set up between [id number] today. Will check in with pt and Sharita when she arrives and follow accordingly.
--- NOTE | 2019-02-05 13:05 | PT-IP ANOTE ---
Checked with pt twice this afternoon, pt eating lunch then pt with RT testing trilogy, pt will be ready for afternoon tx around 3:00
--- NOTE | 2019-02-05 14:34 | PC.NURSE ---
pt preparing for discharge - being set up at present for trilogy for home use- otherwise o2 @ 2l nc during rest and 3l o2 during activity. Saline lock x 1 remains. He denies pain and has worked with both PT/OT- Does still have to work on steps with PT prior to d/c. bilateral compression socks to lower extremities- dressing change to left as per MD orders completed- Nystatin applied to groin/beneath abd folds. at bedside and quite anxious
--- NOTE | 2019-02-05 14:48 | PM.DS.1 ---
History of Present Illness History of Present Illness Date Patient Seen: 02/05/19 Time Patient Seen: 14:50 Chief complaint: hx of a-fib/CHF/sob x 11days Narrative: As per ADRIAN Salgado: Mr. Yair Torres is an 83-year-old male with history significant for chronic atrial fibrillation on warfarin anticoagulation, diastolic congestive heart failure, COPD, hypertension, chronic kidney disease stage, hypothyroidism, GERD and bilious dermatosis who was sent to the ER by his primary care provider for shortness of breath. The patient presented to the office today complaining of shortness of breath which she states has been progressive for the last 7-10 days. The patient has had an associated cough reports been nonproductive and increasing exertional dyspnea. The patient patient does not use home O2 but it uses BiPAP nightly. He has had fatigue and drowsiness but no fevers or chills and denies chest pain. The patient was seen by his PCP at which time he was found to have saturations and 79 % on room air but no overt symptoms severe dyspnea. He was seen by his cyber defense incident responder, Dr. Guzman in the [facility], 1 week ago. The patient's states there have been recent changes in the patient's Lasix dosing. He does have an appointment in February for initial evaluation with Nephrology, Dr. Ricky Boss, at [facility]. Patient denies fevers or chills and has had no headaches or dizziness. Reports no nasal congestion or sore throat. Reports no chest pain and acknowledges occasional palpitations. He has shortness of breath this described above but denies wheezing. He denies abdominal pain, heartburn, nausea or vomiting. He denies changes in bowel or bladder habits. The patient endorses increasing difficulty ambulating. Upon arrival to the ER the patient had heart rate of 99, blood pressure 115/81, respiratory rate of 17 saturating 96%. Chest x-ray was obtained which finds marked cardiomegaly with patchy infiltrates. EKG is from obtain finding atrial fibrillation with a ventricular rate of 89, left bundle branch block without ST or T-wave changes or signs of ischemia. An ABG is obtained finding a pH of 7.2 8, pCO2 of 62.8, PO2 of 58, bicarb 29 with a base excess of +2. On laboratory analysis the patient has white count of 5.3 with no shift, hemoglobin of 12.0 and hematocrit of 39.0 with platelets of 155. He has a PT of 36.7, INR of 3.1 with a PTT of 50. On chemistries is sodium is 144 and his potassium 5.3 with a BUN of 66 and a creatinine of 2.7 and nonfasting glucose of 151. His LFTs are within normal limits. Procalcitonin is negative and lactic acid is 1.0. Total CK is low at 45 with a troponin that is elevated at 0.061 and a BNP of 337. The patient is placed on BiPAP in the emergency department the patient tolerates well and is given 60 mg of Lasix. The patient is admitted to the ICU on the medicine service for acute exacerbation of congestive heart failure. Discharge Providers Provider Date of admission: 02/01/19 15:04 Discharge Date: 02/05/19 Primary care physician: Thomas Gallegos PA-C Consults: 02/01/19 21:11 Consult to Dietitian, Adult Routine Comment: Reason For Exam: supratherapeutic INR, morbid obesity, BMI 47.2 Consult to Discharge Planning Routine Comment: Consult to Respiratory Therapy Evaluate & Treat Comment: Physician Instructions: Evaluate and treat 02/03/19 00:01 Consult to Dietitian, Adult Routine Comment: Reason For Exam: pt's spouse request 02/03/19 08:18 Consult to MENTAL HEALTH COORDINATOR - Csr Technician Routine Comment: MENTAL HEALTH COORDINATOR Consult: Community Health Res Need 02/03/19 10:28 Consult to Occupational Therapy Evaluate & Treat Comment: Physician Instructions: Evaluate and treat Consult to Physical Therapy Evaluate & Treat Comment: Physician Instructions: Evaluate and Treat 02/04/19 13:33 Consult to Home Health Routine Comment: Respiratory Failure, CHF, AFIB, Diabetes Reason For Exam: Set up 4WW for home use at discharge 02/04/19 13:42 Consult to Home Health Routine Comment: CHF, AFIB, respiratory failure, diabetes Reason For Exam: Set up HH RN/PT/OT/MARKETING REPRESENTATIVE for d/c likely 02/05/19 Discharge provider: Lonnie Huynh DO Summary Hospital Course Discharge Diagnosis: 1. Acute on chronic hypoxemic and hypercarbic respiratory failure, present on admission. Acute portion resolved. 2. Acute systolic congestive heart failure exacerbation, present on admission. Resolving. 3. Acute kidney injury versus worsening chronic kidney disease stage III, present on admission. Active. 4. Chronic atrial fibrillation on warfarin with supratherapeutic INR, present on admission. Stable. 5. Elevated troponin of unclear significance, present on admission. Stable. 6. Diabetes mellitus type 2, non-insulin using, chronic, present on admission, active 7. Chronic obstructive pulmonary disease, present on admission. Stable. 8. Hypertension, chronic, present on admission. Stable. 9. Bullous pemphigoid, chronic, present on admission. Stable. 10. Gastroesophageal reflux, chronic, present on admission. Stable. 11. Hypothyroidism, chronic, present on admission. Stable. 12. Gout, chronic, present on admission. Stable. 13. Morbid obesity, chronic 14. Bilateral pleural effusions, present on admission - 15. Moderate Pericardial Effusion - Hospital Course: Yair Torres is an 83-year-old male with a past medical history significant for hypertension, hyperlipidemia, systolic congestive heart failure with EF 35-40%, chronic atrial fibrillation on warfarin, chronic kidney disease stage III, hypothyroidism, GERD, and bullous pemphigoid with chronic lower extremity wounds followed by wound care at [facility] who was sent to the ED by his PCP for progressive worsening shortness of breath over 2 weeks, he was admitted for CHF exacerbation and improved with diuresis. Prior to discharge patient was evaluated for home BiPAP, however desaturated on this machine. He subsequently was evaluated for a home trilogy machine, which he will continue to do at home when he is napping or sleeping. He should continue home oxygen at 2 L at rest and 3 L with exertion for chronic hypoxemic respiratory failure. 1. Acute on chronic hypoxemic and hypercarbic respiratory failure, present on admission. Acute portion resolved. -Secondary to exacerbation of congestive heart failure in the setting of COPD with a 70 pack year smoking history and obstructive sleep apnea. Patient was previously on home oxygen which was discontinued for unclear reasons. -Patient was acutely hypoxemic upon arrival the emergency department with a PF ratio of 245 and hypercarbic with PCO2 62.8. -ABG demonstrated respiratory acidosis with metabolic compensation: pH of 7.28, pCO2 62.8, PO2 of 82, bicarb 29 and a base excess of 2. -Consulted respiratory therapy for evaluation and treatment. Continuehome trilogy machine at all times while napping or sleeping. Continue supplemental oxygen as necessary to keep oxygen saturations 88-92%. Currently on 2 L nasal cannula. Patient was hypoxemic at rest with oxygen saturation of 87% on room air. On 2 L nasal cannula his oxygen saturations improved to 92%. On 2 L nasal cannula with exertion his oxygen saturations were 88% and improved to 90% on 3 L. Ordering home oxygen, 2 L at rest and 3 L with exertion to treat his COPD and chronic hypoxemic respiratory failure. -Home BiPAP evaluation failed for treatment of his chronic respiratory failure with overnight desaturations. Home trilogy was obtained and patient will be discharged home to use this machine while napping or sleeping. - transition to home Lasix dosing of 80 mg daily, continue to monitor weights at home and follow up with his cyber defense incident responder. 2. Acute systolic congestive heart failure exacerbation, present on admission. Resolving. -Patient recently had Lasix dose adjusted by his cyber defense incident responder Dr. Louis. The patient does not report weight gain but had progressive dyspnea for the last week SPRAYER INSECTICIDE. -BNP is 337. -Chest x-ray demonstrated significant pulmonary edema with left pleural effusion finds. No evidence of pneumonia, procalcitonin is negative, no leukocytosis, and lactic acid is normal at 1.0. -Previous echocardiogram in 11/2017 demonstrated moderate global hypokinesis with LV function moderately reduced with EF 35-40%. Repeat echocardiogram unchanged. -Received sublingual nitroglycerin 0.4 mg x1 furosemide 60 mg IV x1 in ED. Patient was diuresed and was Net -2.5L since admission. He requires further diuresis at home but this can be achieved with oral medications and will take some time. Continue lasix 80 mg PO daily and continue to trend weights and check in with his cyber defense incident responder. -Continue fluid restriction of 1.5 L and low-sodium diet. -Patient with bilateral pleural effusions and pericardial effusion which is likely secondary to volume overload. Pleural effusions are improving and given size of pericardial effusion this has likely been present for a long time as he is hemodynamically stable. These will require outpatient follow up with repeat echocardiogram and imaging. 3. Acute kidney injury versus worsening chronic kidney disease stage III, present on admission. Active. -Baseline creatinine appears to be 2.2 per outpatient records. Initial creatinine of 2.7 with eGFR is 22.7 and calculated creatinine clearance corrected for weight is 33. Trended down to 2.4 and has stabilized around 2.4-2.7 since likely representing a new baseline. -Patient currently does not have a refinish technician but has an upcoming appointment with Nephrology, Dr. Ricky Boss at [facility]. -Avoid nephrotoxic agents other than diuretic therapy for management congestive failure. -Continue to renally dose medications as appropriate. -Continue to monitor renal function closely. 4. Chronic atrial fibrillation on warfarin with supratherapeutic INR, present on admission. Stable. -EKG demonstrated atrial fibrillation with ventricular rate of 89. -Patient denies chest pain but endorses occasional palpitations. -Potassium is 5.0 and magnesium is 2.4. Discontinued magnesium oxide. -Not currently on a rate-controlling medication. -Patient takes warfarin 7.5 mg 6 times per week and 5 mg once per week and is presently on hold for supratherapeutic INR previously 6 now 2.2. Unclear why patient is supratherapeutic other than probable underlying liver disease with mildly low platelets, albumin and elevated INR. Patient was resumed at 5 mg daily upon discharge, INR 1.8 on day of discharge. Continue outpatient monitoring with repeat INR in approximately 2-3 days and follow-up [facility]. 5. Elevated troponin of unclear significance, present on admission. Stable. -Patient denies chest pain. -EKG demonstrated atrial fibrillation without ischemic changes. -Serial troponins mildly elevated and stable at 0.062, 0.061, 0.060 in setting of chronic kidney disease. 6. Diabetes mellitus type 2, non-insulin using, chronic, present on admission, active -Hemoglobin A1c 5.8% indicative of tight glycemic control and prediabetic range. -no changes to diabetic regimen given A1c as noted above. 7. Chronic obstructive pulmonary disease, present on admission. Stable. 8. Hypertension, chronic, present on admission. Stable. -Continue home hydralazine 50 mg 3 times daily, isosorbide mononitrate 30 mg daily and losartan half normal dose at 25 mg daily. Discontinued eplerenone as this is contraindicated with creatinine greater than 2. 9. Bullous pemphigoid, chronic, present on admission. Stable. -Patient receives wound care through [facility]. Patient previously with lesions on the right leg which have been successfully treated with betamethasone. Recent lesions have developed on the left lower leg with wound care instructions stating to do dressing changes every other day with betamethasone and Saran wrap and will continue. 10. Gastroesophageal reflux, chronic, present on admission. Stable. 11. Hypothyroidism, chronic, present on admission. Stable. -TSH normal at 3.68. -Continue home levothyroxine with alternating dose of 200 and 300 mcg daily. 12. Gout, chronic, present on admission. Stable. -Held allopurinol due to JAYE as above and will restart at lower renal dose 100 mg daily upon discharge. -Continue losartan at half normal dose 25 mg daily due to elevated creatinine for hypertension with additional uric acid lowering affect. BP was well controlled upon discharge. 13. Morbid obesity, chronic -BMI is 47.2 -Consulted dietitian but not obtainable as they are not available on weekends. 14. Bilateral pleural effusions, present on admission - management as noted above in #2. 15. Moderate Pericardial Effusion - management as noted above in #2. Time Spent with Patient Time spent: Greater than 30 minutes Exam Vital Signs (past 8 hours): - 02/05/19 07:40 02/05/19 12:00 02/05/19 12:36 Temperature 98.3 F 97.5 F L Pulse Rate 96 H 84 96 H Respiratory Rate 20 20 Blood Pressure 134/94 H 112/53 L 112/53 L Pulse Oximetry 97 94 Fraction of Inspired Oxygen 0.32 Oxygen Delivery Method Nasal Cannula Oxygen Flow Rate 2 Narrative Exam Narrative: General: Elderly gentleman sitting in bedside chair and in no acute distress, well-developed, well-nourished, appropriately interactive HEENT: Normocephalic, atraumatic. External ears without defect. Pupils equal, round, and reactive to light. Anicteric sclerae, moist conjunctivae, and no lid lag. Oropharynx free of erythema and cobble stoning with moist mucosa. Neck: Supple with full range of motion. No jugular venous distension. No lymphadenopathy or thyromegaly. Cardiovascular: Irregularly irregular without murmurs, rubs, or gallops appreciated. Pulmonary: Diminished throughout but improved aeration, clear to auscultation bilaterally with fine bibasilar crackles. No wheezes or rhonchi. Normal respiratory effort with no use of accessory muscles. Abdomen: Soft, obese, nontender, nondistended. No hepatosplenomegaly or masses appreciated. Extremities: No clubbing or cyanosis. Bilateral lower extremities with dressings in place C/D/I and no surrounding erythema. Skin: Normal temperature, turgor, and texture; no rash, ulcers, or subcutaneous nodules appreciated. Neurological: Cranial nerves grossly intact. Psychiatric: Normal mood and affect. Appears alert and oriented to person, place, and time. Objective Labs Result Diagrams: 02/03/19 04:30 02/05/19 04:45 Labs: Laboratory Results - last 24 hr 02/05/19 02/05/19 04:45 04:45 PT 20.8 H INR 1.8 H Sodium 145 Potassium 4.9 Chloride 108 H Carbon Dioxide 33 H BUN 76 H Creatinine 2.60 H Estimated GFR 23.7 L BUN/Creatinine Ratio 29.2 H Glucose 117 H Calcium 10.1 Phosphorus 4.3 H Magnesium 2.5 H Discharge Plan Discharge Plan Patient Disposition: Home Health Service Discharge comment: You were admitted to the hospital with a heart failure exacerbation. You improved with removal of approximately 2.5 L of fluid. You should continue home oxygen and use the trilogy machine which was set up here while napping or sleeping at home. Your medications were adjusted due to an elevated creatinine, including a decrease in allopurinol and losartan. Eplerenone was also held. Please continue to take 80 mg of Lasix daily. Continue to follow daily weights and if your weight continues to increase please contact your cyber defense incident responder to see if an adjustment is needed. It is unclear why your INR was so elevated, INR upon discharge was 1.8. Coumadin was resumed at 5 mg daily. You should have an INR measurement in the next 2-3 days to monitor current dosing. You were given a 14 day supply of 5 mg tablets to give time to follow up with a primary care physician or coumadin clinic. Discharge orders & Medications Prescriptions: New allopurinol 100 mg tablet 100 mg PO DAILY 30 Days Qty: 30 RF: 0 losartan 25 mg tablet 25 mg PO DAILY 30 Days Qty: 30 RF: 0 warfarin [Coumadin] 5 mg Tablet 5 mg PO DAILY 14 Days Qty: 14 RF: 0 Continued atorvastatin 10 mg tablet 10 mg PO QPM RF: 0 isosorbide mononitrate 30 mg tablet extended release 24 hr 30 mg PO QAM RF: 0 hydralazine 25 mg tablet 50 mg PO TID RF: 0 furosemide 80 mg tablet 80 mg PO DAILY RF: 0 dorzolamide 2 % drops 1 drp EYE-LEFT BID RF: 0 multivitamin Tablet 1 tab PO DAILY RF: 0 levothyroxine 200 mcg tablet 300 mcg PO SUTUTH RF: 0 levothyroxine 200 mcg tablet 200 mcg PO RF: 0 cholecalciferol (vitamin D3) [Vitamin D3] 2,000 unit Tablet 2,000 unit PO DAILY RF: 0 Victoza 2-Mingo 0.6 mg/0.1 mL (18 mg/3 mL) pen injector 6 mg SUBCUT DAILY RF: 0 magnesium oxide 400 mg magnesium Tablet 400 mg PO DAILY RF: 0 PreserVision AREDS 1 cap PO BID RF: 0 Probiotic 1 cap PO QPM RF: 0 Discontinued losartan 50 mg tablet 50 mg PO DAILY RF: 0 warfarin 5 mg tablet See Rx Instructions .ROUTE .COMPLEX RF: 0 allopurinol 300 mg tablet 300 mg PO DAILY RF: 0 eplerenone 25 mg tablet 12.5 - 25 mg PO DAILY RF: 0 Follow up/Referrals: Thomas Gallegos PA-C [Primary Care Provider] - Diet/Activity/Treatments Diet: Diet as Tolerated Diet comment: 1.5 L fluid restriction Activity: As tolerated Oxygen: 2 L at rest, 3 L with exertion. Use of trilogy machine while asleep. Discharge Data Primary Care Provider: Thomas Gallegos
[2019-02-05] MEDS: SODIUM CHLORIDE 0.9% FLUSH 10 ML IV (14:57)
--- NOTE | 2019-02-05 16:12 | PT.IPTN ---
Current Diagnoses Bullous disorder, unspecified (02/01/19) Physical Therapy Treatment Note M2 PT-IP Current Condition Start: 02/03/19 17:02 Freq: NEEDED Status: Active Protocol: Document 02/03/19 16:41 DLM (Rec: 02/03/19 17:16 DLM [id number]) Physical Therapy Current Condition Current Condition Evaluation Date 02/03/19 Treatment Diagnosis impaired gait and decreased activity tolerance Onset Date 02/01/19 Precautions Other Precautions oxygen needs: 2 LPM at rest and 3 LPM with activity per respiratory M3 PT-IP Subjective Start: 02/03/19 17:02 Freq: NEEDED Status: Active Protocol: Document 02/05/19 15:58 AW (Rec: 02/05/19 16:12 AW [id number]) Subjective Physical Therapy Visit Type Type Treatment Note Visit Start Time 15:18 Visit Stop Time 15:55 Total Visit Minutes 37 Notes Pt's Sharita present throughout treatment Number of YARN FINISHER Visits 0 Physical Therapy Visit Comments Patient Comments Pt is happy to work with therapy M4 PT-IP Mobility and Gait Start: 02/03/19 17:02 Freq: NEEDED Status: Active Protocol: Document 02/05/19 15:58 AW (Rec: 02/05/19 16:12 AW [id number]) PT-Bed Mobility Assessment Supine to Sit Supine to Sit Standby Assistance Sit to Supine Sit to Supine Standby Assistance Scooting Scooting to Edge of Bed Standby Assistance Scooting Up and Down in Bed Standby Assistance PT-Transfer Assessment Sit to and From Stand Sit to and from Stand Standby Assistance,Moderate Assistance Equipment Transfer Assistive Device Gait Belt,Front Wheeled Walker Transfers Transfer Destination Bed,Chair,Wheelchair Transfer Technique Pt ambulated w/ FWW. Transfer Ability Level of Assist Standby Assistance,Contact Guard Assistance,1 Person Assistance Comments Mobility Comments Pt able to perform all bed mobility with SBA from flat bed and without use of bed rails. Sit <> stand from bed, wheelchair, and bedside chair all performed SBA. SpO2 was 96 % on 3L supplemental O2 at rest and 92% during transfers. Gait Assessment Gait Gait Assistance Required: Standby Assistance Distance (Feet) 150 Able to Maintain Weight Bearing Status Yes During Gait Assistive Devices Assistive Device Gait Belt,Front Wheeled Walker Gait Deviations General Gait Pattern Antalgic,Decreased Stride Length,Decreased Feet Clearance Factors Limiting Gait Function Factors Limiting Gait Function Decreased Activity Tolerance, Decreased Strength,Respiratory Distress Comments Gait Comments Pt ambulated 150 ft with FWW SBA with no rest break. SpO2 maintained low 90's during ambulation on 3L O2 via NC. Stair Climbing Assessment Evaluation Level of Assist On Stairs Standby Assistance,Contact Guard Assistance Devices Stair Climbing Assistive Devices Right Railing Technique/Endurance Stair Climbing Direction Ascend and Descend Stair Climbing Technique Step to Step Number of Steps Climbed 3 Stair Climbing Set # Repetitions (reps) 2 Comments Stair Climbing Comments Pt used ascending right rail and step-to patter, leading with the right leg up and with the left leg down. First set completed CGA. Second set completed SBA. SpO2 recorded at 83% (portable monitor) during stairs on 3L O2 with recovery to low 90's within 2 minutes. M5 PT-IP Objective Assessments Start: 02/03/19 17:02 Freq: NEEDED Status: Active Protocol: Document 02/03/19 16:41 DLM (Rec: 02/03/19 17:16 DLM [id number]) Orientation Orientation/Cognition Level of Alertness Alert Orientation Name,Age,Birthday,Month,Date, Year,Day of Week,Place, Situation Language Function Ability No Deficits Noted Safety Awareness Understands Safety Issues Memory Description No Deficits Noted Gross Range of Motion Upper Extremity ROM Assessment Within Functional Limits Lower Extremity ROM Assessment Within Functional Limits Strength Upper Extremity Strength Assessment Within Functional Limits Lower Extremity Strength Assessment Within Functional Limits Coordination Assessment Gross Coordination Gross Coordination WNL Sensation Assessment Comments Sensation Comments he reports no numbness in his feet today but that he typically does not numbness in bilateral feet Muscle Tone Muscle Tone WNL Yes M6 PT-IP Treatment Start: 02/03/19 17:02 Freq: NEEDED Status: Active Protocol: Document 02/05/19 15:58 AW (Rec: 02/05/19 16:12 AW [id number]) Physical Therapy Treatment Education Education Provided Safety M7 PT-IP Assessment and Plan Start: 02/03/19 17:02 Freq: NEEDED Status: Active Protocol: Document 02/05/19 15:58 AW (Rec: 02/05/19 16:12 AW [id number]) PT Summary Assessment and Plan Summary Impairments Transfers,Gait,Activity Tolerance Assessment Summary Bed mobility assessed with no need for more than SBA. Pt continues to demonstrate good safety awareness with use of FWW. His remains anxious about his care needs at home, but pt requires no more than SBA for all mobility given his awareness of need to slow down and to take deep breaths. Goals Bed Mobility Goal Independent Transfer Goal Independent,Front Wheeled Walker Gait Goal Standby Assistance,Front Wheel Walker,Four Wheel Walker Gait Distance 150 feet Days to Meet Goals 2 Frequency of Treatment Frequency Of Treatment Twice a Day Treatment Plan Physical Therapy Treatment Plan Bed Mobility Training,Transfer Training,Gait Training, Therapeutic Exercise,Discharge Planning Recommendations To Nursing Amount of Assist Needed 1 Person Assist Discharge Recommendations PT Discharge Recommendations Home with Assistance,Home Health Equipment Needed for Home Before 4WW for home use Discharge
[2019-02-05] MEDS: ATORVASTATIN 10 MG TABLET PO (17:06)
[2019-02-05] MEDS: WARFARIN 5 MG TABLET PO (17:11)
--- NOTE | 2019-02-05 18:26 | PC.NURSE ---
1814 -Pt ready for discharge. Pt had removed IV catheter. Reviewed discharge instructions, pt states My can take care of that. Discharge information reviewed with pt . She asked appropriate questions. Reviewed medication, changes and last doses. RT assisted with O2 education providing tanks for transport home. Assisted pt with her phone taking pictures of proper set up of trilogy machine as reviewed by providing rep. Pt very anxious with discharge information. Allowed to take a moment and review information and answered addition questions. Pt, upon standing, removes O2, reviewed need to leave O2 in place, reinforced fluid restrictions. Pt states unless I get thirsty. Reinforced CHF education. Pt discharge via WC to private vehicle.
--- NOTE | 2019-02-06 08:49 | CM.DPC ---
DCP Cont: Faxed discharge summary to [facility] at fax # [phone]. Fax confirmation scanned in. Wanda Gutiérrez, [employer]
--- NOTE | 2019-02-06 11:09 | CM.DPNOTE ---
Received call from spouse Sharita, she asks why she has not heard from [facility]? 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 Spouse appreciative and will call to check on Monday f/u ? JW
== END 2019-02-05 18:15 | disposition home health service (06) | DRG 291 ==
LOC: ED 13:49 → ICU 15:05
PROVIDERS: Internal Medicine; Nurse Practitioner Adult Health; Admitting Provider Internal Medicine; Emergency Provider Emergency Medicine; PCP Physician Assistant; Visit Provider Internal Medicine
DX: I13.0 Hypertensive heart and chronic kidney disease with heart failure and stage 1 through stage 4 chronic kidney disease, or unspecified chronic kidney disease (principal); I50.23 Acute on chronic systolic (congestive) heart failure; J96.22 Acute and chronic respiratory failure with hypercapnia; J96.21 Acute and chronic respiratory failure with hypoxia; N17.9 Acute kidney failure, unspecified; Z68.42 Body mass index [BMI] 45.0-49.9, adult; I48.20 Chronic atrial fibrillation, unspecified; E87.4 Mixed disorder of acid-base balance; I31.3 Pericardial effusion (noninflammatory); L12.0 Bullous pemphigoid; E11.22 Type 2 diabetes mellitus with diabetic chronic kidney disease; N18.3 Chronic kidney disease, stage 3 (moderate); Z79.01 Long term (current) use of anticoagulants; G47.33 Obstructive sleep apnea (adult) (pediatric); E03.9 Hypothyroidism, unspecified; M10.9 Gout, unspecified; E66.01 Morbid (severe) obesity due to excess calories; J44.9 Chronic obstructive pulmonary disease, unspecified; K21.9 Gastro-esophageal reflux disease without esophagitis; R79.89 Other specified abnormal findings of blood chemistry; Z87.891 Personal history of nicotine dependence; Z79.84 Long term (current) use of oral hypoglycemic drugs
CPT/HCPCS: 36415; 36600; 51701; 51705; 71045; 71250; 80048; 80053; 80076; 81003; 82550; 82805; 82962; 83036; 83605; 83735; 83880; 84100; 84145; 84443; 84484; 85025; 85610; 85730; 87040; 93005; 93306; 94618; 94660; 96374; 97116; 97162; 97165; 97530; 97535; 99284; 99291; J1940